=== PATIENT | female | born 1975 | race Caucasian/White ===

== ENCOUNTER 2016-10-21 22:42 | Inpatient (IN) | payer SELFPAY ==
[~2016-10-21] VITALS: Ht 165.1 cm; Wt 82.6 kg
[2016-10-21 22:49] VITALS: BP 105/63; PULSE 85; RESP 24; TEMP 98.2; O2SAT 92
[2016-10-21] MEDS ORDERED: methylPREDNISolone SOD SUCC 125 MG/2 ML VIAL IVP ONE (23:00)
[2016-10-21] MEDS ORDERED: SODIUM CHLORIDE 0.9% FLUSH 10 ML FLUSH IVF PRN (23:00)
[2016-10-21] MEDS ORDERED: SODIUM CHLORID 0.9% 500 ML INJ 500 ML IV ONE (23:00)
[2016-10-21] MEDS: RESP: ALBUTEROL 2.5 MG/IPRATROPIUM 0.5 MG NEB (SCH) INH (23:07)
--- NOTE | 2016-10-21 23:14 | PD ---
HPI Chief Complaint: Chest Pain Time Seen by Provider: 22:55 Travel History International Travel<30 days: No Contact w/Intl Traveler<30days: No Traveled to known affect area: No History of Present Illness HPI Patient is a 41-year-old female presenting to the emergency evaluation of chest pain and shortness of breath. Patient states it started 2 days ago, she does admit to smoking crack cocaine prior to the pain starting. She does report that she smokes regularly but has been trying to cut back. She endorses a history of tobacco use as well as COPD, currently she is not on any medications for this. Patient states it hurts to take a deep breath. She denies any headache, nausea, vomiting, abdominal pain, IV drug use. Patient states the pain in her chest feels pressure like. PFSH Past Medical History Bipolar Disorder: Yes Heart Rhythm Problems: Yes (murmur) COPD: Yes Diminished Hearing: No Immunizations Current: Yes ?: Unknown LMP: UNK : 1 Para: 1 Past Surgical History Neurologic Surgery: Yes (cerebral aneurysm) Social History Alcohol Use: Yes (12 pack per day) Tobacco Use: Yes (1 ppd) Substance Use: Yes (cocaine ) Allergies-Medications (Allergen,Severity, Reaction): Coded Allergies: No Known Allergies (Verified , 10/21/16) Reported Meds & Prescriptions Reported Meds & Active Scripts Active No Active Prescriptions or Reported Medications Review of Systems Except as stated in HPI: all other systems reviewed are Neg General / Constitutional: No: Fever, Chills HENT: No: Headaches Cardiovascular: Positive: Chest Pain or Discomfort Respiratory: Positive: Cough, Shortness of Breath Gastrointestinal: No: Nausea, Vomiting, Abdominal Pain Musculoskeletal: No: Myalgias Physical Exam Narrative GENERAL: Overweight, well-developed, disheveled but alert female. Resting comfortably in no acute distress. SKIN: Focused skin assessment warm/dry. HEAD: Atraumatic. Normocephalic. EYES: Pupils equal and round. No scleral icterus. No injection or drainage. ENT: No nasal bleeding or discharge. Mucous membranes pink and moist. NECK: Trachea midline. No JVD. CARDIOVASCULAR: Regular rate and rhythm. No murmur appreciated. RESPIRATORY: No accessory muscle use. Clear to auscultation. Breath sounds equal bilaterally. GASTROINTESTINAL: Abdomen soft, non-tender, nondistended. Hepatic and splenic margins not palpable. MUSCULOSKELETAL: No obvious deformities. No clubbing. No cyanosis. No edema. Positive pedal pulses, brisk less than 3 second capillary refill. NEUROLOGICAL: Awake and alert. No obvious cranial nerve deficits. Motor grossly within normal limits. Normal speech. PSYCHIATRIC: Appropriate mood and affect; insight and judgment normal. Data Data Last Documented VS Vital Signs Date Time Temp Pulse Resp B/P Pulse Ox O2 Delivery O2 Flow Rate FiO2 10/22/16 00:44 91 22 122/66 93 Nasal Cannula 2 10/21/16 22:49 98.2 Orders Electrocardiogram (10/21/16 22:54) Ckmb (Isoenzyme) Profile (10/21/16 22:54) Complete Blood Count With Diff (10/21/16 22:54) Comprehensive Metabolic Panel (10/21/16 22:54) Magnesium (Mg) (10/21/16 22:54) Prothrombin Time / Inr (Pt) (10/21/16 22:54) Act Partial Throm Time (Ptt) (10/21/16 22:54) Troponin I (10/21/16 22:54) Chest, Single Ap (10/21/16 22:54) Ecg Monitoring (10/21/16 22:54) Bilateral Bp Monitoring (10/21/16 22:54) Iv Access Insert/Monitor (10/21/16 22:54) Oximetry (10/21/16 22:54) Oxygen Administration (10/21/16 22:54) Sodium Chloride 0.9% Flush (Ns Flush) (10/21/16 23:00) Sodium Chlorid 0.9% 500 Ml Inj (Ns 500 M (10/21/16 23:00) Ct Pulmonary Angiogram (10/21/16 22:54) Methylprednisolone So Succ Inj (Solumedr (10/21/16 23:00) Albuterol-Ipratropium Neb (Duoneb Neb) (10/21/16 23:00) Potassium Chloride (Kcl) (10/22/16 00:00) Iohexol 350 Inj (Omnipaque 350 Inj) (10/22/16 00:34) Lactic Acid (10/22/16 00:45) Blood Culture (10/22/16 00:47) Urinalysis - C+S If Indicated (10/22/16 00:48) Admit Order (Ed Use Only) (10/22/16 01:21) Labs Laboratory Tests Test 10/21/16 10/22/16 23:02 00:55 White Blood Count 12.0 TH/MM3 Red Blood Count 4.34 MIL/MM3 Hemoglobin 14.4 GM/DL Hematocrit 42.6 % Mean Corpuscular Volume 98.0 FL Mean Corpuscular Hemoglobin 33.2 PG Mean Corpuscular Hemoglobin 33.9 % Concent Red Cell Distribution Width 13.5 % Platelet Count 224 TH/MM3 Mean Platelet Volume 7.7 FL Neutrophils (%) (Auto) 61.0 % Lymphocytes (%) (Auto) 29.3 % Monocytes (%) (Auto) 8.7 % Eosinophils (%) (Auto) 0.7 % Basophils (%) (Auto) 0.3 % Neutrophils # (Auto) 7.3 TH/MM3 Lymphocytes # (Auto) 3.5 TH/MM3 Monocytes # (Auto) 1.0 TH/MM3 Eosinophils # (Auto) 0.1 TH/MM3 Basophils # (Auto) 0.0 TH/MM3 CBC Comment DIFF FINAL Differential Comment Prothrombin Time 9.7 SEC Prothromb Time International 0.9 RATIO Ratio Activated Partial 26.6 SEC Thromboplast Time Sodium Level 143 MEQ/L Potassium Level 3.4 MEQ/L Chloride Level 110 MEQ/L Carbon Dioxide Level 23.5 MEQ/L Anion Gap 10 MEQ/L Blood Urea Nitrogen 5 MG/DL Creatinine 0.54 MG/DL Estimat Glomerular Filtration 124 ML/MIN Rate Random Glucose 97 MG/DL Calcium Level 7.9 MG/DL Magnesium Level 2.2 MG/DL Total Bilirubin 0.1 MG/DL Aspartate Amino Transf 13 U/L (AST/SGOT) Alanine Aminotransferase 30 U/L (ALT/SGPT) Alkaline Phosphatase 74 U/L Total Creatine Kinase 67 U/L Troponin I LESS THAN 0.02 NG/ML Total Protein 7.4 GM/DL Albumin 3.2 GM/DL Lactic Acid Level 1.9 mmol/L MDM Medical Decision Making Medical Screen Exam Complete: Yes Emergency Medical Condition: Yes Interpretation(s) Last Impressions Chest X-Ray 10/21/162253 Signed Impressions: Service Date/Time: Friday, October 21, 2016 23:05 - CONCLUSION: No acute disease. Constantino Chacon MD CT Angiography 5/28/17 2254 Signed Impressions: Service Date/Time: Saturday, October 22, 2016 00:31 - CONCLUSION: Small finding in the left pulmonary artery suggestive of residua of prior PE. Nothing to suggest acute PE. Mild patchy basilar infiltrates. Constantino Chacon MD Laboratory Tests Test 10/21/16 23:02 White Blood Count 12.0 TH/MM3 Red Blood Count 4.34 MIL/MM3 Hemoglobin 14.4 GM/DL Hematocrit 42.6 % Mean Corpuscular Volume 98.0 FL Mean Corpuscular Hemoglobin 33.2 PG Mean Corpuscular Hemoglobin 33.9 % Concent Red Cell Distribution Width 13.5 % Platelet Count 224 TH/MM3 Mean Platelet Volume 7.7 FL Neutrophils (%) (Auto) 61.0 % Lymphocytes (%) (Auto) 29.3 % Monocytes (%) (Auto) 8.7 % Eosinophils (%) (Auto) 0.7 % Basophils (%) (Auto) 0.3 % Neutrophils # (Auto) 7.3 TH/MM3 Lymphocytes # (Auto) 3.5 TH/MM3 Monocytes # (Auto) 1.0 TH/MM3 Eosinophils # (Auto) 0.1 TH/MM3 Basophils # (Auto) 0.0 TH/MM3 CBC Comment DIFF FINAL Differential Comment Prothrombin Time 9.7 SEC Prothromb Time International 0.9 RATIO Ratio Activated Partial 26.6 SEC Thromboplast Time Sodium Level 143 MEQ/L Potassium Level 3.4 MEQ/L Chloride Level 110 MEQ/L Carbon Dioxide Level 23.5 MEQ/L Anion Gap 10 MEQ/L Blood Urea Nitrogen 5 MG/DL Creatinine 0.54 MG/DL Estimat Glomerular Filtration 124 ML/MIN Rate Random Glucose 97 MG/DL Calcium Level 7.9 MG/DL Magnesium Level 2.2 MG/DL Total Bilirubin 0.1 MG/DL Aspartate Amino Transf 13 U/L (AST/SGOT) Alanine Aminotransferase 30 U/L (ALT/SGPT) Alkaline Phosphatase 74 U/L Total Creatine Kinase 67 U/L Troponin I LESS THAN 0.02 NG/ML Total Protein 7.4 GM/DL Albumin 3.2 GM/DL Vital Signs Date Time Temp Pulse Resp B/P Pulse Ox O2 Delivery O2 Flow Rate FiO2 10/21/16 22:49 25 97 10/21/16 22:49 98.2 85 24 105/63 92 Nasal Cannula 2 Differential Diagnosis Pulmonary embolism versus acute coronary syndrome versus electrolyte abnormality versus pneumonia versus COPD exacerbation versus other Narrative Course Patient is a 41-year-old female presenting to emergency evaluation of shortness of breath and chest pain. Patient endorses crack cocaine use as well as tobacco use and a history of COPD/emphysema with no current medical therapy. Labs and imaging were ordered pending, IV access initiated. Patient placed on telemetry monitoring and continuous pulse oximetry. Patient was mildly hypoxic on arrival with O2 sat in the upper 80s to low 90s. Patient placed on O2 2 L and currently at 94%. Chest x-ray shows no acute disease CT pulmonary angiogram shows small finding in the left pulmonary arteries suggestive of residual of prior PE, nothing to suggest acute PE. Mild patchy basilar infiltrates. CBC with a white count of 12.0 Chemistry with potassium 3.4, oral replacement given. Troponin less than 0.02 Coags are unremarkable Lactic acid 1.9 UA pending Blood cultures obtained and pending. Patient reports improvement in her breathing after administration of DuoNeb and IV Solu-Medrol. Due to hypoxia and chest pain. Patient will be admitted to optimize respiratory status. Discussed with Dr. Aguiar who accepted admission. Orders placed for inpatient admission. Sepsis Criteria SIRS Criteria (2 or more): Heart rate over 90, RR > 20 or PaCO2 < 32, WBC > 09877, < 4000 or > 10% bands Diagnosis Primary Impression: Hypoxia Additional Impressions: COPD exacerbation Chest pain Qualified Code: R07.9 - Chest pain, unspecified type Hypokalemia Drug abuse, cocaine type Admitting Information Admitting Physician Requests: Admit Scripts No Active Prescriptions or Reported Meds Condition: Stable Serenity Correa October 21, 2016 23:14
[2016-10-21 23:21] LABS: AUTOMATED NEUTROPHIL # 7.3 TH/MM3 (1.8-7.7); BASOPHIL % 0.3 % (0.0-2.0); EOSINOPHIL # 0.1 TH/MM3 (0-0.4); EOSINOPHIL % 0.7 % (0.0-4.0); HEMATOCRIT 42.6 % (35.0-46.0); HEMO FLAGS DIFF FINAL; LYMPH % 29.3 % (9.0-44.0); LYMPHOCYTE # 3.5 TH/MM3 (1.0-4.8); MEAN CORPUSCULAR HEMOGLOBIN 33.2 PG (27.0-34.0); MEAN CORPUSCULAR HGB CONC 33.9 % (32.0-36.0); MONO % 8.7 % (0.0-8.0); PLATELET COUNT 224 TH/MM3 (150-450); RED BLOOD COUNT 4.34 MIL/MM3 (4.00-5.30); RED CELL DISTRIBUTION WIDTH 13.5 % (11.6-17.2)
--- NOTE | 2016-10-21 23:22 | RADRPT ---
EXAM DATE/TIME: 10/21/2016 23:05 [facility] COMPARISON: No previous studies available for comparison. INDICATIONS : Short of breath. MEDICAL HISTORY : None. SURGICAL HISTORY : None. ENCOUNTER: Initial ACUITY: 1 day PAIN SCORE: 7/10 LOCATION: Bilateral chest FINDINGS: A single view of the chest demonstrates the lungs to be symmetrically aerated without evidence of mas s, infiltrate or effusion. The cardiomediastinal contours are unremarkable. Osseous structures are intact. CONCLUSION: No acute disease. Constantino Chacon MD on October 21, 2016 at 23:19 Board Certified Radiologist. This report was verified electronically.
[2016-10-21 23:51] LABS: APTT (PATIENT) 26.6 SEC (24.3-30.1); INTERNATIONAL NORMALIZED RATIO 0.9 RATIO; PROTHROMBIN TIME - PATIENT 9.7 SEC (9.8-11.6)
[2016-10-21 23:58] LABS: ANION GAP 10 MEQ/L (5-15); AST (GOT) 13 U/L (15-37); BICARBONATE 23.5 MEQ/L (21.0-32.0); BLOOD UREA NITROGEN 5 MG/DL (7-18); CHLORIDE 110 MEQ/L (98-107); GLOMERULAR FILTRATION RATE 124 ML/MIN (>89); MAGNESIUM 2.2 MG/DL (1.5-2.5); POTASSIUM 3.4 MEQ/L (3.5-5.1); SODIUM (NA) 143 MEQ/L (136-145)
[2016-10-22] VITALS (10 sets, daily range): BP systolic 120–142; BP diastolic 66–80; PULSE 65–92; RESP 17–22; TEMP 96.8–98.3; O2SAT 93–96
[2016-10-22] MEDS ORDERED: POTASSIUM CHLORIDE 20 MEQ CONTROLLED RELEASE TAB PO ONE
[2016-10-22 00:02] LABS: ALKALINE PHOSPHATASE 74 U/L (45-117); ALT (GPT) 30 U/L (10-53); TOTAL BILIRUBIN ADULT 0.1 MG/DL (0.2-1.0)
[2016-10-22 00:04] LABS: CREATINE KINASE 67 U/L (26-192)
[2016-10-22] MEDS ORDERED: IOHEXOL 350 MG/ML 10 ML VIAL (for RAD DIAG) IV ONE (00:34)
--- NOTE | 2016-10-22 00:54 | RADRPT ---
EXAM DATE/TIME: 10/22/2016 00:31 [facility] COMPARISON: No previous studies available for comparison. INDICATIONS : Chest pain with shortness of breath x2 days. IV CONTRAST: 74 cc Omnipaque 350 (iohexol) IV RADIATION DOSE: 11.3 CTDIvol (mGy) MEDICAL HISTORY : Chronic obstructive pulmonary disease. Substance abuse. SURGICAL HISTORY : None. ENCOUNTER: Initial ACUITY: 2 days PAIN SCALE: 5/10 LOCATION: Bilateral chest TECHNIQUE: Volumetric scanning of the chest was performed using a pulmonary embolism protocol MIP images were re constructed. Using automated exposure control and adjustment of the mA and/or kV according to patien t size, radiation dose was kept as low as reasonably achievable to obtain optimal diagnostic quality images. FINDINGS: The study is mildly degraded by motion. PULMONARY ARTERIES: There is a tiny irregular focus of low density along the lateral wall of the left main pulmonary lucas ry at the bifurcation region which has the appearance of a small marginalized focus of nonacute PE. T here are no other focal filling defects identified suggest acute pulmonary embolism. LUNGS: Patchy mild basilar parenchymal infiltrates, mainly in the middle lobe and lingula PLEURAE: There is no pleural thickening or pleural effusion. MEDIASTINUM: There is good visualization of the great vessels of the middle mediastinum. No evidence of mediastin al or hilar adenopathy/mass. MUSCULOSKELETAL: Within normal limits for patient age. MISCELLANEOUS: 16-17 mm peripherally calcified thrombosed aneurysm in the splenic hilum CONCLUSION: Small finding in the left pulmonary artery suggestive of residua of prior PE. Nothing to suggest acut e PE. Mild patchy basilar infiltrates. Constantino Chacon MD on October 22, 2016 at 0:44 Board Certified Radiologist. This report was verified electronically.
[2016-10-22] MEDS ORDERED: BISACODYL 10 MG SUPP RECTAL PRN (01:45)
[2016-10-22] MEDS ORDERED: SENNOSIDES 8.6 MG TAB PO PRN (01:45)
[2016-10-22] MEDS ORDERED: LORazepam 2 MG/ML VIAL IV PUSH PRN ×5 (01:45→02:15)
[2016-10-22] MEDS ORDERED: LACTULOSE SYRUP 20 GM/30 ML CUP PO PRN (01:45)
[2016-10-22] MEDS ORDERED: ONDANSETRON HCL 4 MG/2 ML VIAL IVP PRN (01:45)
[2016-10-22] MEDS ORDERED: RESP: ALBUTEROL 2.5 MG/IPRATROPIUM 0.5 MG NEB (PRN) NEB (01:45)
[2016-10-22] MEDS ORDERED: ACETAMINOPHEN/HYDROcodone 325 MG/5 MG TAB PO PRN (01:45)
[2016-10-22] MEDS ORDERED: MAGNESIUM HYDROXIDE SUSP 30 ML CUP PO PRN (01:45)
[2016-10-22] MEDS ORDERED: MORPHINE SULFATE 4 MG/ML INJ IV PRN (01:45)
[2016-10-22] MEDS ORDERED: ACETAMINOPHEN 325 MG TAB PO PRN (01:45)
--- NOTE | 2016-10-22 02:12 | HHI.HP ---
[facility] No Primary Care Physician Admission Diagnosis chest pain, hypoxia, COPD exacerbation Diagnoses: (1) COPD (chronic obstructive pulmonary disease) Diagnosis: Principal (2) Chest pain Diagnosis: Principal (3) Hypoxia Diagnosis: Principal (4) Hypokalemia Diagnosis: Principal (5) Leukocytosis Diagnosis: Principal (6) Cocaine abuse Diagnosis: Principal (7) Alcohol abuse Diagnosis: Principal (8) Tobacco abuse Diagnosis: Principal Travel History International Travel<30 Days: No Contact w/Intl Traveler <30 Da: No Traveled to Known Affected Are: No History of Present Illness This is a 41-year-old female with a PMH of Alcohol Abuse, Tobacco Abuse, Crack Cocaine Abuse, Bipolar Disorder and COPD who presented to the ER with complaints of SOB and chest pain starting earlier this evening. Patient does admit to smoking crack on a regular basis, states she used crack prior to onset of symptoms. Denies fever, chills or sick contacts. On arrival, O2 sat noted to be 86% on RA. BP 105/63, HR 85, Afebrile. Currently O2 sat 97% on 2L NC. WBC 12. K+ 3.4. Ca 7.9, Lactic Acid normal. Trop negative. EKG w/ no acute changes. INR 0.9. CXR with no acute findings. CTA Pulm with small residual PE left pulmonary artery, no acute PE noted, mild patchy basilar infiltrates. S /p Solu-Medrol and DuoNeb in ER w/ some improvement. Review of Systems Except as stated in HPI: all other systems reviewed are Neg ROS: 14 point review of systems otherwise negative. Past Family Social History Past Medical History PMH: Alcohol Abuse, Tobacco Abuse, Crack Cocaine Abuse, Bipolar Disorder and COPD Past Surgical History PAST SURGICAL HISTORY: Cerebral Aneurysm Allergies: Coded Allergies: No Known Allergies (Verified , 10/21/16) Family History PAST FAMILY HISTORY: Reviewed. No h/o DM or CAD Social History PAST SOCIAL HISTORY: Drinks 12 beers per day. Smokes 1ppd. Smokes Crack Cocaine daily, denies IVDU. Physical Exam Vital Signs Vital Signs Date Time Temp Pulse Resp B/P Pulse Ox O2 Delivery O2 Flow Rate FiO2 10/22/16 00:44 91 22 122/66 93 Nasal Cannula 2 10/21/16 22:49 25 97 10/21/16 22:49 98.2 85 24 105/63 92 Nasal Cannula 2 Physical Exam PE: GENERAL: Middle-aged female in no acute distress, appears older than stated age. HEENT: PERRLA, EOMI. No scleral icterus or conjunctival pallor. No lid lag or facial droop. CARDIOVASCULAR: Regular rate and rhythm. No obvious murmurs to auscultation. No chest tenderness to palpation. RESPIRATORY: No obvious rhonchi. Occasional wheezing. Clear to auscultation. Breath sounds equal bilaterally. GASTROINTESTINAL: Abdomen soft, non-tender, nondistended. BS normal. MUSCULOSKELETAL: Extremities without clubbing, cyanosis, or edema. No obvious deformities. NEUROLOGICAL: Awake, alert and oriented x4. No focal neurologic deficits. Moving both upper and lower extremities spontaneously. Laboratory Laboratory Tests Test 10/21/16 10/22/16 23:02 00:55 White Blood Count 12.0 Red Blood Count 4.34 Hemoglobin 14.4 Hematocrit 42.6 Mean Corpuscular Volume 98.0 Mean Corpuscular Hemoglobin 33.2 Mean Corpuscular Hemoglobin 33.9 Concent Red Cell Distribution Width 13.5 Platelet Count 224 Mean Platelet Volume 7.7 Neutrophils (%) (Auto) 61.0 Lymphocytes (%) (Auto) 29.3 Monocytes (%) (Auto) 8.7 Eosinophils (%) (Auto) 0.7 Basophils (%) (Auto) 0.3 Neutrophils # (Auto) 7.3 Lymphocytes # (Auto) 3.5 Monocytes # (Auto) 1.0 Eosinophils # (Auto) 0.1 Basophils # (Auto) 0.0 CBC Comment DIFF FINAL Differential Comment Prothrombin Time 9.7 Prothromb Time International 0.9 Ratio Activated Partial 26.6 Thromboplast Time Sodium Level 143 Potassium Level 3.4 Chloride Level 110 Carbon Dioxide Level 23.5 Anion Gap 10 Blood Urea Nitrogen 5 Creatinine 0.54 Estimat Glomerular Filtration 124 Rate Random Glucose 97 Calcium Level 7.9 Magnesium Level 2.2 Total Bilirubin 0.1 Aspartate Amino Transf 13 (AST/SGOT) Alanine Aminotransferase 30 (ALT/SGPT) Alkaline Phosphatase 74 Total Creatine Kinase 67 Troponin I LESS THAN 0.02 Total Protein 7.4 Albumin 3.2 Lactic Acid Level 1.9 Date/Time Procedure Status Source Growth 10/22/16 00:55 Aerobic Blood Culture Received Blood Peripheral Pending 10/22/16 00:55 Anaerobic Blood Culture Received Blood Peripheral Pending Result Diagram: 10/21/16 2302 10/21/16 2302 Assessment and Plan Problem List: (1) COPD (chronic obstructive pulmonary disease) ICD Code: J44.9 Status: Acute (2) Chest pain ICD Code: R07.9 Status: Acute (3) Hypoxia ICD Code: R09.02 Status: Acute (4) Leukocytosis ICD Code: D72.829 Status: Acute (5) Hypokalemia ICD Code: E87.6 Status: Acute (6) Cocaine abuse ICD Code: F14.10 Status: Acute (7) Alcohol abuse ICD Code: F10.10 Status: Acute (8) Tobacco abuse ICD Code: Z72.0 Status: Acute Assessment and Plan A/P: 1. COPD: Chronic Respiratory Failure w/ Acute Exacerbation and associated Hypoxia. +wheezing on exam. S/p Solu-Medrol and DuoNeb w/ some improvement. Continue Solu-Medrol, DuoNeb, Mucinex and Symbicort. 2. Hypoxia: O2 sat 86% on RA upon arrival, currently 97% on 2L NC, monitor O2 sat closely. Continue w/ treatment as above. 3. Leukocytosis: WBC 12, afebrile. Reports non-productive cough. CXR w/ no acute findings, CTA Pulm w/ small residual PE left pulmonary artery, mild patchy basilar infiltrates, images reviewed by me. Will start on treatment w/ IV Levaquin. Repeat labs in am. 4. Hypokalemia: Mild. K+ 3.4, s/p replacement in ER, will recheck and replace as needed. 5. Chest Pain: Likely multifactorial-secondary to acute COPD exacerbation and crack cocaine. Initial trop 0.04, EKG w/ no acute changes. ASA, Statin. Hold B-lamonte in light of cocaine. Morphine prn. 6. Cocaine Abuse: Smokes crack cocaine daily, denies IVDU. Ativan prn for withdrawal/agitation. 7. Alcohol Abuse: Drinks 12 beers/day. CIWA, Seizure Precautions, MVT/ Thiamine/Folate replacement. 8. Tobacco Abuse: Pt counselled. Ativan prn. No NicoDerm to avoid vasoconstriction. 9. DVT Prophylaxis: SCD/Teds. 10. Social work for d/c planning as needed. 11. Case discussed w/ ER physician at length. Physician Certification 2 Midnight Certification Type: Admission for Inpatient Services Order for Inpatient Services The services are ordered in accordance with Medicare regulations or non- Medicare payer requirements, as applicable. In the case of services not specified as inpatient-only, they are appropriately provided as inpatient services in accordance with the 2-midnight benchmark. Estimated LOS (days): 2 days is the estimated time the patient will need to remain in the hospital, assuming treatment plan goals are met and no additional complications. Post-Hospital Plan: Not yet determined Problem Qualifiers (1) Chest pain: Qualified Code: R07.9 - Chest pain, unspecified type Neli Aguiar MD October 22, 2016 02:12
[2016-10-22] MEDS ORDERED: FLUMAZENIL 0.5 MG/5 ML VIAL IV PUSH PRN (02:15)
[2016-10-22] MEDS ORDERED: LORazepam 1 MG TAB PO PRN (02:15)
[2016-10-22] MEDS ORDERED: HALOPERIDOL LACTATE 5 MG/ML AMP IM PRN (02:15)
[2016-10-22] MEDS ORDERED: LORazepam 2 MG TAB PO PRN (02:15)
[2016-10-22] MEDS: LEVOFLOXACIN 750 MG PREMIX INJ 150 ML IV SCH (02:26)
[2016-10-22] MEDS: methylPREDNISolone SOD SUCC 40 MG/1 ML VIAL IV PUSH SCH ×4 (04:51→23:15)
[2016-10-22 06:53] LABS: BACTERIA, URINE RARE /hpf; BLOOD, URINE NEG (NEG); GLUCOSE,URINE TRACE mg/dL (NEG); KETONE, URINE NEG (NEG); MUCUS URINE FEW /lpf (OCC); NITRITE,URINE NEG (NEG); SQUAMOUS EPITHELIAL CELL URINE 4 /hpf (0-5); URINE COLOR YELLOW (YELLW/STRAW)
[2016-10-22 07:03] LABS: COMMENT (UR) CULT NOT INDICATED; CULTURE IF INDICATED CULT NOT INDICATED
[2016-10-22] MEDS: RESP: ALBUTEROL 2.5 MG/IPRATROPIUM 0.5 MG NEB (SCH) NEB ×4 (07:44→19:50)
--- NOTE | 2016-10-22 08:19 | EKG ---
Date Performed: 10/21/2016 Time Performed: 22:53:17 PTAGE: 41 years EKG: Sinus rhythm MARKED RIGHT AXIS DEVIATION RIGHT BUNDLE BRANCH BLOCK ABNORMAL ECG NO PREVIOUS TRACING DOCTOR: Erik Zamora Interpretating Date/Time 10/22/2016 08:18:33
[2016-10-22] MEDS: THIAMINE HCL 100 MG TAB PO SCH (09:16)
[2016-10-22] MEDS: ASPIRIN EC 81 MG TABEC PO SCH (09:16)
[2016-10-22] MEDS: MULTIVITAMINS/MINERALS THERAPEUTIC TAB PO SCH (09:16)
[2016-10-22] MEDS: PRAVASTATIN SOD 40 MG TAB PO SCH (09:16)
[2016-10-22] MEDS: FOLIC ACID 1 MG TAB PO SCH (09:16)
[2016-10-22] MEDS: guaiFENesin E.R. 600 MG TAB PO SCH ×2 (09:16→20:52)
[2016-10-22] MEDS: DOCUSATE SODIUM 50 MG/SENNA 8.6 MG TAB PO SCH ×2 (09:16→20:52)
[2016-10-22] MEDS: SODIUM CHLORIDE 0.9% FLUSH 10 ML FLUSH IV FLUSH SCH ×2 (09:17→20:51)
[2016-10-22] MEDS: BUDESONIDE-FORMOTEROL 160/4.5 MCG INHALER INH SCH ×2 (09:22→20:51)
[2016-10-22] MEDS: SODIUM CHLORIDE 0.9% FLUSH 10 ML FLUSH IV FLUSH PRN ×2 (11:55→18:08)
[2016-10-23] VITALS: BP 157/72; PULSE 69; RESP 20; TEMP 96; O2SAT 95
[2016-10-23] MEDS: LEVOFLOXACIN 750 MG PREMIX INJ 150 ML IV SCH (01:54)
[2016-10-23 04:00] VITALS: BP 115/86; PULSE 83; RESP 20; TEMP 96.9; O2SAT 95
[2016-10-23 05:44] LABS: ANION GAP 10 MEQ/L (5-15); AST (GOT) 8 U/L (15-37); BICARBONATE 25.5 MEQ/L (21.0-32.0); BLOOD UREA NITROGEN 8 MG/DL (7-18); CHLORIDE 104 MEQ/L (98-107); GLOMERULAR FILTRATION RATE 124 ML/MIN (>89); POTASSIUM 3.9 MEQ/L (3.5-5.1); SODIUM (NA) 139 MEQ/L (136-145)
[2016-10-23 05:45] LABS: AUTOMATED NEUTROPHIL # 18.1 TH/MM3 (1.8-7.7); BASOPHIL % 0.2 % (0.0-2.0); HEMATOCRIT 41.1 % (35.0-46.0); HEMO FLAGS DIFF FINAL; MEAN CELL VOLUME 98.9 FL (80.0-100.0); MEAN CORPUSCULAR HEMOGLOBIN 33.4 PG (27.0-34.0); MEAN CORPUSCULAR HGB CONC 33.8 % (32.0-36.0); MONO % 4.2 % (0.0-8.0); NEUT % 90.6 % (16.0-70.0); PLATELET COUNT 220 TH/MM3 (150-450); RED BLOOD COUNT 4.16 MIL/MM3 (4.00-5.30); RED CELL DISTRIBUTION WIDTH 13.5 % (11.6-17.2); WHITE BLOOD COUNT 19.9 TH/MM3 (4.0-11.0)
[2016-10-23] MEDS: methylPREDNISolone SOD SUCC 40 MG/1 ML VIAL IV PUSH SCH (05:47)
[2016-10-23 05:54] LABS: ALKALINE PHOSPHATASE 68 U/L (45-117); ALT (GPT) 24 U/L (10-53); TOTAL BILIRUBIN ADULT 0.2 MG/DL (0.2-1.0)
[2016-10-23 08:00] VITALS: BP 130/80; PULSE 72; RESP 18; TEMP 95.7; O2SAT 98
[2016-10-23] MEDS: RESP: ALBUTEROL 2.5 MG/IPRATROPIUM 0.5 MG NEB (SCH) NEB (08:32)
[2016-10-23 08:34] VITALS: O2SAT 95
[2016-10-23] MEDS: FOLIC ACID 1 MG TAB PO SCH (08:46)
[2016-10-23] MEDS: DOCUSATE SODIUM 50 MG/SENNA 8.6 MG TAB PO SCH (08:47)
[2016-10-23] MEDS: MULTIVITAMINS/MINERALS THERAPEUTIC TAB PO SCH (08:47)
[2016-10-23] MEDS: ASPIRIN EC 81 MG TABEC PO SCH (08:47)
[2016-10-23] MEDS: THIAMINE HCL 100 MG TAB PO SCH (08:47)
[2016-10-23] MEDS: PRAVASTATIN SOD 40 MG TAB PO SCH (08:47)
[2016-10-23] MEDS: guaiFENesin E.R. 600 MG TAB PO SCH (08:47)
[2016-10-23] MEDS: SODIUM CHLORIDE 0.9% FLUSH 10 ML FLUSH IV FLUSH SCH (09:00)
[2016-10-23] MEDS: BUDESONIDE-FORMOTEROL 160/4.5 MCG INHALER INH SCH (09:00)
--- NOTE | 2016-10-23 09:23 | HHI.PR ---
Subjective Remarks Patient reports she is feeling great and requesting to go home. She reports that her breathing status is at baseline. No chest pain. We discussed discharge planning at length and the need for her to stop drinking alcohol and use illicit drugs. Objective Vitals Vital Signs Date Time Temp Pulse Resp B/P Pulse Ox O2 Delivery O2 Flow Rate FiO2 10/23/16 08:34 95 10/23/16 08:00 95.7 72 18 130/80 98 10/23/16 04:00 96.9 83 20 115/86 95 10/23/16 00:00 96.0 69 20 157/72 95 10/22/16 20:30 65 10/22/16 20:00 97.1 69 20 138/71 95 10/22/16 19:50 96 21 10/22/16 16:00 98.3 72 17 142/66 96 10/22/16 16:00 96.8 78 18 130/68 95 10/22/16 12:00 97.9 87 18 120/80 94 I/O 10/22/16 10/22/16 10/22/16 10/23/16 10/23/16 10/23/16 07:00 15:00 23:00 07:00 15:00 23:00 Intake Total 240 ml 240 ml 480 ml 390 ml Balance 240 ml 240 ml 480 ml 390 ml Intake Oral 240 ml 240 ml 480 ml 240 ml IV Total 0 ml 150 ml # Voids 0 2 2 3 # Bowel Movements 0 1 0 1 Result Diagram: 10/23/16 0432 10/23/16 0432 Objective Remarks GENERAL: This is a well-nourished, well-developed patient, in no apparent distress. CARDIOVASCULAR: Normal rate and regular rhythm without murmurs, gallops, or rubs. RESPIRATORY: Good respiratory efforts. Breath sounds equal and clear to auscultation bilaterally. GASTROINTESTINAL: Abdomen soft, non-tender, non-distended. Normal active bowel sounds MUSCULOSKELETAL: Extremities without cyanosis, or edema. NEURO: Alert & Oriented x4 to person, place, time, situation. Moves all ext x4 PSYCH: Appropriate mood and affect. A/P Problem List: (1) COPD (chronic obstructive pulmonary disease) ICD Code: J44.9 Status: Acute (2) Chest pain ICD Code: R07.9 Status: Acute (3) Hypoxia ICD Code: R09.02 Status: Acute (4) Leukocytosis ICD Code: D72.829 Status: Acute (5) Hypokalemia ICD Code: E87.6 Status: Acute (6) Cocaine abuse ICD Code: F14.10 Status: Acute (7) Alcohol abuse ICD Code: F10.10 Status: Acute (8) Tobacco abuse ICD Code: Z72.0 Status: Acute Assessment and Plan 41-year-old female admitted with acute COPD exacerbation likely secondary to pneumonia and persistent crack cocaine use. The patient was treated with IV Solu-Medrol, breathing treatments, and IV Levaquin. She was hypoxemic on arrival. The patient's symptoms quickly improved. She is discharge home on Levaquin and prednisone to complete the course of treatment. Other conditions treated include Hypokalemia: Mild. K+ 3.4, s/p replacement in ER Chest Pain: Likely multifactorial-secondary to acute COPD exacerbation and crack cocaine. Cardiac enzymes and EKG unremarkable. Cocaine Abuse: Smokes crack cocaine daily, denies IVDU. Ativan prn for withdrawal/agitation. The patient was extensively counseled to stop using illicit drugs. Alcohol Abuse: Drinks 12 beers/day. CIWA, Seizure Precautions, MVT/Thiamine/ Folate replacement. Tobacco Abuse: Pt counselled. Ativan prn. No NicoDerm to avoid vasoconstriction. Discharge Planning Discharge home in good condition Activity: Regular as tolerated Diet: Regular as tolerated Follow-up with PCP Meds: Per med rec Problem Qualifiers (1) Chest pain: Qualified Code: R07.9 - Chest pain, unspecified type Harman Sanchez MD October 23, 2016 09:23
[2016-10-23] MEDS ORDERED: LEVO750T3 PO (09:25)
[2016-10-23] MEDS ORDERED: PRED20 PO (09:25)
--- NOTE | 2016-10-23 09:26 | HHI.DCPOC ---
Discharge Care Plan Diagnosis: (1) Hypoxia (2) COPD exacerbation (3) Alcohol use disorder (4) Drug abuse, cocaine type (5) Tobacco abuse Goals to Promote Your Health * To prevent worsening of your condition and complications * To maintain your health at the optimal level Directions to Meet Your Goals Take your medications as prescribed Follow your dietary instruction Follow activity as directed Keep your appointments as scheduled Take your immunizations and boosters as scheduled If your symptoms worsen call your PCP, if no PCP go to Urgent Care Center or Emergency Room Smoking is Dangerous to Your Health. Avoid second hand smoke Call the 24-hour hour crisis hotline for domestic abuse at Harman Sanchez MD October 23, 2016 09:26
== END 2016-10-23 12:08 | disposition home or self-care (01) | DRG 189 ==
LOC: NEPD 22:42 → NEDA 10-22 01:22 → N07B 10-22 02:37
PROVIDERS: ADMIT Family Medicine; ATTEND Family Medicine
PROC: 3E0F7GC Introduction of Other Therapeutic Substance into Respiratory Tract, Via Natural or Artificial Opening (ICD-10-PCS; principal; 2016-10-22)
DX: J96.21 Acute and chronic respiratory failure with hypoxia (principal); J18.9 Pneumonia, unspecified organism; J44.0 Chronic obstructive pulmonary disease with (acute) lower respiratory infection; J44.1 Chronic obstructive pulmonary disease with (acute) exacerbation; F14.10 Cocaine abuse, uncomplicated; F31.9 Bipolar disorder, unspecified; E87.6 Hypokalemia; F17.200 Nicotine dependence, unspecified, uncomplicated; Z86.711 Personal history of pulmonary embolism; F10.10 Alcohol abuse, uncomplicated; T40.5X1A Poisoning by cocaine, accidental (unintentional), initial encounter; Y92.9 Unspecified place or not applicable; R07.89 Other chest pain
CPT/HCPCS: 71010; 71275; 80053; 81001; 82550; 82948; 83605; 83735; 84484; 85025; 85610; 85730; 87040; 93005; 94640; 94664; 96361; 96374; J1956; J2920; J2930; J7040; Q9967

== ENCOUNTER 2017-05-16 14:14 | Emergency (ER) | payer SELFPAY ==
[~2017-05-16 14:14] MED LIST: LEVO750T3 PO; PRED20 PO
[2017-05-16 14:21] VITALS: BP 141/80; PULSE 91; RESP 20; TEMP 98; O2SAT 94
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
--- NOTE | 2017-05-16 16:18 | RADRPT ---
EXAM DATE/TIME: 05/16/2017 15:51 [facility] COMPARISON: No previous studies available for comparison. INDICATIONS : Right leg swelling. MEDICAL HISTORY : Chronic obstructive pulmonary disease. . Cerebral aneurysm. Heart murmur. Bipolar disord er. Substance abuse. SURGICAL HISTORY : Ankle surgery. ENCOUNTER: Initial ACUITY: 2 weeks PAIN SCORE: 3/10 LOCATION: Right leg. TECHNIQUE: Venous ultrasound of the leg was performed from the inguinal ligament to the proximal calf. Real-sylvester e, color Doppler and spectral tracing, compression and augmentation techniques were used. FINDINGS: There is normal compressibility of the deep venous system from the inguinal region to the proximal ca lf. No echogenic clot is seen in the lumen of the common femoral, femoral, popliteal, and posterior tibial veins. There is a normal response of the venous system to proximal and distal augmentation an d respiration. There is elliptical fluid collection within the subcutaneous tissues of the medial calf. This measure s 10.0 x 5.1 x 0.8 cm and is simple in appearance. CONCLUSION: 1. Small simple subcutaneous fluid collection involving the medial calf. 2. No DVT. Rob Parra Jr., MD on May 16, 2017 at 16:14 Board Certified Radiologist. This report was verified electronically.
[2017-05-16] MEDS ORDERED: BACT800T5 PO (16:31)
[2017-05-16] MEDS ORDERED: CEPH-460 PO (16:31)
== END 2017-05-16 16:33 | disposition home or self-care (01) ==
LOC: NEPD 14:14
DX: Z48.02 Encounter for removal of sutures (principal); L03.115 Cellulitis of right lower limb; S82.831G Other fracture of upper and lower end of right fibula, subsequent encounter for closed fracture with delayed healing; F31.9 Bipolar disorder, unspecified; R01.1 Cardiac murmur, unspecified; J44.9 Chronic obstructive pulmonary disease, unspecified; F17.200 Nicotine dependence, unspecified, uncomplicated; X58.XXXD Exposure to other specified factors, subsequent encounter
CPT/HCPCS: 73590; 93971; 99285; E0113; L1830

== ENCOUNTER 2017-12-23 22:00 | Inpatient (IN) ==
[2017-12-24] MEDS ORDERED: Morphine Inj 4 MG/ML Vial IV.PUSH ONE ×2 (00:38→02:13)
[2017-12-24] MEDS ORDERED: Sodium Chlor 0.9% Inj 500 ML IV.SIG ONE (00:38)
[2017-12-24] MEDS ORDERED: Piperacil/Tazo 3.375 GM Premix 50 ML IV.SIG ONE (00:38)
[2017-12-24] MEDS ORDERED: Vancomycin Inj 1 GM/200 ML PIGGYBACK IV.SIG ONE (00:38)
[2017-12-24 01:19] LABS: Baso % (Auto) 0.2 % (0.0-2.0); Eos % (Auto) 0.2 % (0.0-4.0); Hematocrit 39.2 % (35.0-46.0); Hemoglobin 13.5 gm/dL (11.6-15.3); Lymph # (Auto) 1.3 th/mm3 (1.0-4.8); Lymph % (Auto) 8.1 % (9.0-44.0); Mean Corpuscular HGB Conc 34.5 % (32.0-36.0); Mean Corpuscular Hemoglobin 33.7 pg (27.0-34.0); Mean Corpuscular Volume 97.6 fL (80.0-100.0); Mean Platelet Volume 8.9 fL (7.0-11.0); Mono # (Auto) 1.3 th/mm3 (0.0-0.9); Mono % (Auto) 7.6 % (0.0-8.0); Neut % (Auto) 83.9 % (16.0-70.0); Platelet Count 167 th/mm3 (150-450); Red Blood Count 4.02 mil/mm3 (4.00-5.30); Red Cell Distribution Width 13.6 % (11.6-17.2); White Blood Count 16.7 th/mm3 (4.0-11.0)
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
[2017-12-24 01:29] LABS: Alkaline Phosphatase 89 U/L (45-117); Total Protein 7.2 g/dL (6.4-8.2)
[2017-12-24 01:32] LABS: Alanine Aminotransferase 27 U/L (10-53); Albumin 2.5 g/dL (3.4-5.0); Anion Gap 9 meq/L (5-15); Aspartate Aminotransferase 16 U/L (15-37); Blood Urea Nitrogen 8 mg/dL (7-18); Calcium 9.7 mg/dL (8.5-10.1); Carbon Dioxide 26.9 meq/L (21.0-32.0); Chloride 100 meq/L (98-107); Glomerular Filtration Rate Greater Than 89 mL/min (>89); Glucose,Random 68 mg/dL (74-106); Potassium 3.2 meq/L (3.5-5.1); Sodium 136 meq/L (136-145)
[2017-12-24 01:33] LABS: Creatine Kinase 28 U/L (26-192)
--- NOTE | 2017-12-24 01:55 | XR ---
EXAM DATE: 12/24/2017 1:43 AM EDT AGE/SEX: 42 years / Female INDICATIONS: Pain and swelling in right leg. CLINICAL DATA: This is the patient's initial encounter. Patient reports that signs and symptoms have been present for 1 day and indicates a pain score of 5/10. MEDICAL/SURGICAL HISTORY: None. None. COMPARISON: [facility], FOOT COMPLETE RIGHT 3V, 12/24/2017. . FINDINGS: Bony structures are intact and in normal alignment. Osseous density is normal. There is diffuse soft tissue prominence. No radiopaque foreign bodies seen. CONCLUSION: Soft tissue prominence with no acute fracture or malalignment. Electronically signed by: Alexis Jensen MD 12/24/2017 1:54 AM EDT
--- NOTE | 2017-12-24 01:55 | XR ---
EXAM DATE: 12/24/2017 1:42 AM EDT AGE/SEX: 42 years / Female INDICATIONS: Pain in right leg, swelling. CLINICAL DATA: This is the patient's initial encounter. Patient reports that signs and symptoms have been present for 1 day and indicates a pain score of 4/10. MEDICAL/SURGICAL HISTORY: None. None. COMPARISON: [facility] [place], TIBIA/FIBULA RIGHT (AP/LAT), 05/16/2017. . FINDINGS: AP, lateral and oblique views of the foot were obtained and demonstrate a mildly comminuted fracture deformity involving the proximal second phalanx with several oblique fracture lines. There is no abno rmal angulation or significant distraction. The fracture lines do not appear to extend into the proxi mal interphalangeal joint. There is soft tissue swelling over the dorsum of the foot. CONCLUSION: Mildly comminuted fracture deformity involving the second proximal phalanx. Electronically signed by: Alexis Jensen MD 12/24/2017 1:53 AM EDT
[2017-12-24 02:17] LABS: Lymphocytes 8 % (9-44); Monocytes 7 % (0-8); Platelet Estimate Normal (Normal)
[2017-12-24 02:18] LABS: RBC Morphology Normal (Normal)
[2017-12-24] MEDS ORDERED: Vancomycin Consult Pharmacy 1 EACH OTHER SCH (04:28)
[2017-12-24] MEDS ORDERED: Temazepam 15 MG Capsule PO PRN (04:28)
[2017-12-24] MEDS ORDERED: Bisacodyl 10 MG Supp RECTAL PRN (04:28)
[2017-12-24] MEDS ORDERED: Vancomycin Inj 1,000 MG in Sodium Chlor 0.9% Inj 250 ML IV.SIG ONE (05:00)
[2017-12-24] MEDS ORDERED: Morphine Inj 4 MG/ML Vial IV.PUSH PRN (06:45)
[2017-12-24] MEDS: Heparin - SQ 10,000 UNITS/ML Vial SQ SCH ×2 (07:00→17:42)
[2017-12-24] MEDS: Piperacil/Tazo 3.375 GM Premix 50 ML IV.SIG SCH ×3 (07:01→19:03)
[2017-12-24] MEDS ORDERED: Docusate Sodium 100 MG Capsule PO PRN (10:01)
[2017-12-24] MEDS ORDERED: Aluminum/Magnesium/Simethacone Susp 30 ML UDC PO PRN (10:01)
[2017-12-24] MEDS ORDERED: Morphine Sulfate Inj 2 MG/ML Vial IV.PUSH PRN (10:01)
[2017-12-24] MEDS ORDERED: Naloxone Inj 0.4 MG/ML Vial IV.PUSH PRN (10:01)
[2017-12-24] MEDS ORDERED: Haloperidol Inj 5 MG/ML Ampul IV.PUSH PRN (10:15)
[2017-12-24] MEDS ORDERED: LORazepam 1 MG Tablet PO PRN (10:15)
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
[2017-12-24] MEDS ORDERED: UPDATE PATIENT HEIGHT IN MEDITECH - CALL PHARMACY OTHER SCH (10:30)
[2017-12-24] MEDS: Vancomycin Inj 1,000 MG in Sodium Chlor 0.9% Inj 250 ML IV.SIG SCH ×2 (10:32→17:41)
[2017-12-24] MEDS: Senna/Docusate Sodium 8.6/50 MG Tablet PO SCH ×2 (10:33→21:57)
[2017-12-24] MEDS: oxyCODONE/Acetaminophen 10/325 Tablet PO PRN ×2 (11:36→17:42)
[2017-12-24] MEDS: Acetaminophen 325 MG Tablet PO PRN ×2 (12:00→21:57)
[2017-12-24] MEDS: Folic Acid 1 MG Tablet PO SCH (12:01)
[2017-12-24] MEDS: Famotidine 20 MG Tablet PO SCH ×2 (12:01→21:57)
[2017-12-24 14:10] LABS: Hepatitis A IgM Antibody Nonreactive (Nonreactive)
[2017-12-24 14:11] LABS: Hepatitits B Surface Antigen Nonreactive (Nonreactive)
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
[2017-12-24] MEDS ORDERED: Enoxaparin Inj 40 MG/0.4 ML Syringe SQ SCH (17:00)
[2017-12-25] MEDS ORDERED: Pharmacy Ordered Lab Info OTHER ONE (01:45)
[2017-12-25] MEDS: Vancomycin Inj 1,000 MG in Sodium Chlor 0.9% Inj 250 ML IV.SIG SCH ×3 (03:54→18:31)
[2017-12-25] MEDS: Piperacil/Tazo 3.375 GM Premix 50 ML IV.SIG SCH (06:02)
[2017-12-25 08:43] LABS: Baso % (Auto) 0.2 % (0.0-2.0); Eos % (Auto) 0.3 % (0.0-4.0); Hematocrit 33.5 % (35.0-46.0); Hemoglobin 11.4 gm/dL (11.6-15.3); Lymph # (Auto) 1.3 th/mm3 (1.0-4.8); Lymph % (Auto) 9.1 % (9.0-44.0); Mean Corpuscular HGB Conc 34.2 % (32.0-36.0); Mean Corpuscular Hemoglobin 33.2 pg (27.0-34.0); Mean Platelet Volume 7.9 fL (7.0-11.0); Mono # (Auto) 1.4 th/mm3 (0.0-0.9); Mono % (Auto) 10.1 % (0.0-8.0); Neut # (Auto) 11.5 th/mm3 (1.8-7.7); Neut % (Auto) 80.3 % (16.0-70.0); Platelet Count 170 th/mm3 (150-450); Red Blood Count 3.45 mil/mm3 (4.00-5.30); Red Cell Distribution Width 13.9 % (11.6-17.2); White Blood Count 14.3 th/mm3 (4.0-11.0)
[2017-12-25 09:11] LABS: Alanine Aminotransferase 97 U/L (10-53); Anion Gap 7 meq/L (5-15); Aspartate Aminotransferase 99 U/L (15-37); Blood Urea Nitrogen 15 mg/dL (7-18); Calcium 8.2 mg/dL (8.5-10.1); Carbon Dioxide 25.6 meq/L (21.0-32.0); Chloride 103 meq/L (98-107); Cholesterol 87 mg/dL (120-200); Glomerular Filtration Rate 48 mL/min (>89); Glucose,Random 89 mg/dL (74-106); Magnesium 1.8 mg/dL (1.5-2.5); Phosphorus 2.7 mg/dL (2.5-4.9); Potassium 3.5 meq/L (3.5-5.1); Sodium 136 meq/L (136-145); Triglycerides 129 mg/dL (42-150)
[2017-12-25] MEDS: Folic Acid 1 MG Tablet PO SCH (09:11)
[2017-12-25] MEDS: Famotidine 20 MG Tablet PO SCH ×2 (09:11→23:24)
[2017-12-25] MEDS: Senna/Docusate Sodium 8.6/50 MG Tablet PO SCH ×2 (09:12→21:25)
[2017-12-25 09:20] LABS: Alkaline Phosphatase 99 U/L (45-117); Chol/HDL Ratio 9.56 Ratio; Free T4 (Free Thyroxine) 1.36 ng/dL (0.76-1.46); HDL Cholesterol 9.1 mg/dL (40.0-60.0); LDL Cholesterol,Calculated 52 mg/dL (0-99); Total Protein 6.6 g/dL (6.4-8.2)
--- NOTE | 2017-12-25 11:39 | P.PNIM ---
Subjective Interval history: Follow-up right foot cellulitis Patient still complaining of moderate to severe right foot pain, positive for fever overnight. Denies any chest pain or shortness of breath. Physical Exam Vital signs: Vital Signs 12/24/17 12:00 12/24/17 16:00 12/24/17 20:00 Temperature 101.6 F H 98.7 F 101.5 F H Pulse Rate 112 H 89 98 H Respiratory Rate 19 19 16 Blood Pressure 133/78 124/73 108/64 Pulse Oximetry 92 L 96 93 L 12/25/17 00:00 12/25/17 04:00 12/25/17 08:00 Temperature 99.2 F 98.7 F 100 F H Pulse Rate 91 H 95 H 95 H Respiratory Rate 17 17 18 Blood Pressure 112/77 117/73 123/71 Pulse Oximetry 93 L 93 L Intake & Output 12/24/17 12/25/17 12/25/17 18:59 06:59 18:59 Intake Total 1800 / 1800 850 / 850 Balance 1800 / 1800 850 / 850 Weight 75.9 kg 168 kg Intake: IV 600 / 600 350 / 350 Zosyn 3.375 GM Premix 50 ML @ 100 / 100 100 / 100 100 mls/hr IV.SIG Q6H [facility] Rx#: [id number] Vancomycin Inj 1,000 MG In NS 500 / 500 250 / 250 Inj 250 ML @ 250 mls/hr IV.SIG Q8H [facility] Rx#:[id number] Oral 1200 / 1200 500 / 500 Other: # Voids 4 3 Narrative: Not in distress, well-nourished PERRL, pink conjunctiva without injection, anicteric Normal rate and regular rhythm, no murmurs gallops or rubs appreciated. Clear to auscultation and symmetric bilaterally, normal respiratory effort. Normal bowel sounds, soft, non-tender, nondistended, no guarding. Right foot, dorsalis pedis nonpalpable, gross sensation intact, very tender, with erythema and warmth. No open lesions noted. AAO x3, no cranial nerve deficits, moves all 4 extremities, no focal neurologic deficits Results - Labs CBC & Chem 7: 12/25/17 08:18 12/25/17 08:18 Laboratory Results - last 24 hr 12/24/17 12/25/17 12/25/17 11:51 01:48 08:18 WBC 14.3 H RBC 3.45 L Hgb 11.4 L D Hct 33.5 L MCV 97.0 MCH 33.2 MCHC 34.2 RDW 13.9 Plt Count 170 MPV 7.9 Neut % (Auto) 80.3 H Lymph % (Auto) 9.1 [place] % (Auto) 10.1 H Eos % (Auto) 0.3 Baso % (Auto) 0.2 Neut # (Auto) 11.5 H Lymph # (Auto) 1.3 [place] # (Auto) 1.4 H Eos # (Auto) 0.0 Baso # (Auto) 0.0 WBC Differential . Differential Comment Auto diff final Sodium Potassium Chloride Carbon Dioxide Anion Gap BUN Creatinine Estimated GFR Random Glucose Calcium Phosphorus Magnesium Total Bilirubin AST ALT Alkaline Phosphatase Total Protein Albumin Triglycerides Cholesterol LDL Cholesterol, Calc HDL Cholesterol Cholesterol/HDL Ratio TSH Free T4 Vancomycin Trough 11.4 H Hepatitis A IgM Ab Nonreactive Hep Bs Antigen Nonreactive Hep B Core IgM Ab Nonreactive Hep C IgG Ab Nonreactive 12/25/17 08:18 WBC RBC Hgb Hct MCV MCH MCHC RDW Plt Count MPV Neut % (Auto) Lymph % (Auto) [place] % (Auto) Eos % (Auto) Baso % (Auto) Neut # (Auto) Lymph # (Auto) [place] # (Auto) Eos # (Auto) Baso # (Auto) WBC Differential Differential Comment Sodium 136 Potassium 3.5 Chloride 103 Carbon Dioxide 25.6 Anion Gap 7 BUN 15 Creatinine 1.22 H Estimated GFR 48 L Random Glucose 89 Calcium 8.2 L D Phosphorus 2.7 Magnesium 1.8 Total Bilirubin 1.0 AST 99 H ALT 97 H Alkaline Phosphatase 99 Total Protein 6.6 D Albumin 2.0 L Triglycerides 129 Cholesterol 87 L LDL Cholesterol, Calc 52 HDL Cholesterol 9.1 L Cholesterol/HDL Ratio 9.56 TSH 1.460 Free T4 1.36 Vancomycin Trough Hepatitis A IgM Ab Hep Bs Antigen Hep B Core IgM Ab Hep C IgG Ab Microbiology 12/23/17 22:25 Blood - Peripheral Aerobic Blood Culture - Preliminary No growth in 1 day 12/23/17 22:25 Blood - Peripheral Anaerobic Blood Culture - Preliminary No growth in 1 day 12/23/17 22:20 Blood - Peripheral Aerobic Blood Culture - Preliminary No growth in 1 day 12/23/17 22:20 Blood - Peripheral Anaerobic Blood Culture - Preliminary No growth in 1 day Assessment and Plan - Plan This is a 42-year-old homeless female with history of alcohol abuse presented to the hospital with right foot cellulitis Right foot cellulitis-continue vancomycin and Zosyn, podiatry consulted, recommends MRI of the right foot. Check MRI. Leukocytosis better, still spiking fever. Monitor. Weight bearing as tolerated. Continue pain control. Acute renal failure-baseline creatinine is normal, now creeping up, start normal saline, check CMP tomorrow. AST ALT elevation-hepatitis panel negative, start IVF as above, check CMP tomorrow. Comminuted fracture of the second partial phalanx-management per podiatry Hypokalemia-replaced Tobacco abuse -recommend cessation continue on NicoDerm patch Alcohol abuse recommend cessation will continue on multivitamin thiamine and folic acid, CR protocol if needed. Homeless Lovenox for DVT prophylaxis
[2017-12-25 16:44] LABS: Hemoglobin A1c 4.8 % (4.3-6.0)
[2017-12-25] MEDS: Heparin - SQ 10,000 UNITS/ML Vial SQ SCH (18:25)
[2017-12-25] MEDS: oxyCODONE/Acetaminophen 10/325 Tablet PO PRN (18:35)
[2017-12-26] MEDS: oxyCODONE/Acetaminophen 10/325 Tablet PO PRN ×2 (00:20→09:38)
[2017-12-26] MEDS ORDERED: Pharmacy Ordered Lab Info OTHER ONE (01:45)
[2017-12-26] MEDS: Vancomycin Inj 1,000 MG in Sodium Chlor 0.9% Inj 250 ML IV.SIG SCH ×3 (02:10→19:38)
[2017-12-26] MEDS: Heparin - SQ 10,000 UNITS/ML Vial SQ SCH ×3 (06:41→19:38)
[2017-12-26 08:19] LABS: Albumin 1.9 g/dL (3.4-5.0); Anion Gap 7 meq/L (5-15); Aspartate Aminotransferase 114 U/L (15-37); Blood Urea Nitrogen 18 mg/dL (7-18); Calcium 8.3 mg/dL (8.5-10.1); Carbon Dioxide 27.5 meq/L (21.0-32.0); Chloride 105 meq/L (98-107); Glomerular Filtration Rate 47 mL/min (>89); Glucose,Random 100 mg/dL (74-106); Potassium 3.6 meq/L (3.5-5.1); Sodium 139 meq/L (136-145)
[2017-12-26 08:22] LABS: Alanine Aminotransferase 149 U/L (10-53); Alkaline Phosphatase 260 U/L (45-117); Total Protein 6.8 g/dL (6.4-8.2)
[2017-12-26] MEDS: Sod Chloride 0.9% Inj 1,000 ML IV.CONT SCH ×3 (09:28→19:37)
[2017-12-26] MEDS: Senna/Docusate Sodium 8.6/50 MG Tablet PO SCH ×2 (09:29→21:30)
[2017-12-26] MEDS: Famotidine 20 MG Tablet PO SCH ×2 (09:29→21:30)
[2017-12-26] MEDS: Folic Acid 1 MG Tablet PO SCH (09:30)
--- NOTE | 2017-12-26 09:31 | P.PNIM ---
Subjective Interval history: No fever overnight, patient says that right lower extremity pain about the same , swelling is about the same, not worse. No nausea or vomiting, no shortness of breath. Physical Exam Vital signs: Vital Signs 12/25/17 11:50 12/25/17 16:00 12/25/17 20:00 Temperature 97 F L 99 F 98.4 F Pulse Rate 98 H 99 H 92 H Respiratory Rate 18 18 18 Blood Pressure 119/77 118/71 119/67 Pulse Oximetry 97 92 L 96 12/26/17 00:00 12/26/17 04:00 12/26/17 08:00 Temperature 98.5 F 98.6 F 97.9 F Pulse Rate 83 81 80 Respiratory Rate 17 18 22 Blood Pressure 105/58 L 115/68 111/71 Pulse Oximetry 94 L 97 95 Intake & Output 12/25/17 12/26/17 12/26/17 18:59 06:59 18:59 Intake Total 2069 250 / 250 Output Total 200 / 200 Balance 2069 50 / 50 Weight 78.5 kg Intake: IV 250 / 250 250 / 250 Zosyn 3.375 GM Premix 50 ML @ 0 / 0 100 mls/hr IV.SIG Q6H [facility] Rx#: [id number] Vancomycin Inj 1,000 MG In NS 250 / 250 250 / 250 Inj 250 ML @ 250 mls/hr IV.SIG Q8H [facility] Rx#:[id number] Oral 1819 / 1819 Output: Urine 200 / 200 Other: # Voids 6 # Bowel Movements 0 Narrative: Not in distress, well-nourished PERRL, pink conjunctiva without injection, anicteric Normal rate and regular rhythm, no murmurs gallops or rubs appreciated. Clear to auscultation and symmetric bilaterally, normal respiratory effort. Normal bowel sounds, soft, non-tender, nondistended, no guarding. Right foot, dorsalis pedis nonpalpable, gross sensation intact, less tender, with erythema and warmth. No open lesions noted. Mild draining noted. AAO x3, no cranial nerve deficits, moves all 4 extremities, no focal neurologic deficits Results - Labs CBC & Chem 7: 12/25/17 08:18 12/26/17 06:43 Laboratory Results - last 24 hr 12/25/17 12/25/17 12/26/17 08:18 08:18 02:00 Sodium Potassium Chloride Carbon Dioxide Anion Gap BUN Creatinine Estimated GFR Random Glucose Hemoglobin A1c 4.8 Calcium Total Bilirubin 1.0 AST ALT Alkaline Phosphatase 99 Total Protein 6.6 D Albumin LDL Cholesterol, Calc 52 HDL Cholesterol 9.1 L Cholesterol/HDL Ratio 9.56 TSH 1.460 Free T4 1.36 Vancomycin Trough 17.3 H 12/26/17 06:43 Sodium 139 Potassium 3.6 Chloride 105 Carbon Dioxide 27.5 Anion Gap 7 BUN 18 Creatinine 1.25 H Estimated GFR 47 L Random Glucose 100 Hemoglobin A1c Calcium 8.3 L Total Bilirubin 1.0 AST 114 H ALT 149 H Alkaline Phosphatase 260 H Total Protein 6.8 Albumin 1.9 L LDL Cholesterol, Calc HDL Cholesterol Cholesterol/HDL Ratio TSH Free T4 Vancomycin Trough Microbiology 12/23/17 22:25 Blood - Peripheral Aerobic Blood Culture - Preliminary No growth in 1 day 12/23/17 22:25 Blood - Peripheral Anaerobic Blood Culture - Preliminary No growth in 1 day 12/23/17 22:20 Blood - Peripheral Aerobic Blood Culture - Preliminary No growth in 1 day 12/23/17 22:20 Blood - Peripheral Anaerobic Blood Culture - Preliminary No growth in 1 day Assessment and Plan - Plan This is a 42-year-old homeless female with history of alcohol abuse presented to the hospital with right foot cellulitis Right foot cellulitis-continue vancomycin and Zosyn, podiatry consulted, check MRI of the foot, also check ultrasound the right lower extremity Doppler to rule out DVT. Leukocytosis better, afebrile for the last 24 hours. Monitor. Weight bearing as tolerated per podiatry. Continue pain control. Acute renal failure-baseline creatinine is normal, now creeping up, start normal saline, creatinine still elevated, increase IVF. AST/ALT elevation-hepatitis panel negative, increase IVF, still increasing. Check liver US. Recheck LFTs tomorrow. Comminuted fracture of the second partial phalanx-management per podiatry Hypokalemia-replaced Tobacco abuse -recommend cessation continue on NicoDerm patch Alcohol abuse recommend cessation will continue on multivitamin thiamine and folic acid, CIWA protocol if needed. Homeless Lovenox for DVT prophylaxis
--- NOTE | 2017-12-26 14:06 | XR ---
EXAM DATE: 12/26/2017 2:02 PM EDT AGE/SEX: 42 years / Female INDICATIONS: Clear for MRI. CLINICAL DATA: This is the patient's initial encounter. Patient reports that signs and symptoms have been present for 1 day and indicates a pain score of 0/10. MEDICAL/SURGICAL HISTORY: None. . Brain Aneurysm COMPARISON: No prior exams available for comparison. FINDINGS: A two view examination of the skull demonstrates no evidence of fracture. . No radiopaque foreign bod ies are demonstrated. There appears to be evidence of a previous right-sided craniotomy defect. CONCLUSION: No metallic or radiopaque foreign bodies are seen overlying the calvarium. Electronically signed by: Burak Sapp MD 12/26/2017 2:04 PM EDT
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
[2017-12-26] MEDS ORDERED: Gadobutrol PF 10 MMOL/10 ML Vial (for RAD) IV.SIG ONE (15:34)
--- NOTE | 2017-12-26 16:15 | MR ---
EXAM DATE: 12/26/2017 3:52 PM EDT AGE/SEX: 42 years / Female INDICATIONS: Osteomyelitis. Redness around entire foot. CLINICAL DATA: This is the patient's initial encounter. Patient reports that signs and symptoms have been present for 4 - 6 days and indicates a pain score of 8/10. MEDICAL/SURGICAL HISTORY: None. None. COMPARISON: No prior exams available for comparison. TECHNIQUE: Multiplanar, multisequence MRI examination was performed without contrast and after th e intravenous administration of 7 ml Gadavist (gadobutrol) single exam dose. FINDINGS: There is severe cellulitis involving the entire foot more prominent over the dorsal surface. No focal areas of marrow placement are identified. There is a questionable tiny foreign body involving the p lantar surface of the foot between the first and second webspace at the level of the metatarsophalang eal joint. Following the administration of contrast there is diffuse enhancement of the soft tissues with a superficial abscess over the dorsal aspect of the foot measuring 5 cm x 1 cm. CONCLUSION: Cellulitis and subcutaneous abscess over the dorsal aspect of the foot as described above without melita dence of osteomyelitis Possible foreign body plantar aspect of the foot Electronically signed by: Benito Tan MD 12/26/2017 4:14 PM EDT
[2017-12-26] MEDS: Piperacil/Tazo 3.375 GM Premix 50 ML IV.SIG SCH ×3 (18:31→19:36)
[2017-12-27] MEDS: Piperacil/Tazo 3.375 GM Premix 50 ML IV.SIG SCH ×4 (00:35→20:00)
[2017-12-27] MEDS: Vancomycin Inj 1,000 MG in Sodium Chlor 0.9% Inj 250 ML IV.SIG SCH ×3 (02:02→17:37)
[2017-12-27] MEDS: oxyCODONE/Acetaminophen 10/325 Tablet PO PRN ×3 (04:44→18:51)
[2017-12-27] MEDS: Sod Chloride 0.9% Inj 1,000 ML IV.CONT SCH ×3 (05:43→17:36)
[2017-12-27] MEDS: Heparin - SQ 10,000 UNITS/ML Vial SQ SCH ×2 (06:24→17:42)
[2017-12-27 08:22] LABS: Albumin 1.8 g/dL (3.4-5.0); Calcium 7.9 mg/dL (8.5-10.1); Carbon Dioxide 24.8 meq/L (21.0-32.0)
[2017-12-27 08:25] LABS: Total Protein 6.6 g/dL (6.4-8.2)
--- NOTE | 2017-12-27 08:53 | P.PNIM ---
Subjective Interval history: No fever overnight, had MRI done, showed abscess, this information was relayed to the patient. Right foot pain about the same. No nausea or vomiting. No new complaints. Physical Exam Vital signs: Vital Signs 12/26/17 12:00 12/26/17 16:00 12/26/17 20:00 Temperature 97.7 F 97.8 F 98.2 F Pulse Rate 83 81 89 Respiratory Rate 20 19 18 Blood Pressure 108/66 110/70 116/73 Pulse Oximetry 95 96 98 12/27/17 00:00 12/27/17 04:00 Temperature 99.2 F 98.9 F Pulse Rate 83 94 H Respiratory Rate 18 19 Blood Pressure 114/61 143/68 H Pulse Oximetry 96 96 Intake & Output 12/26/17 12/27/17 12/27/17 18:59 06:59 18:59 Intake Total 1720 / 1720 2200 / 2200 Balance 1720 / 1720 2200 / 2200 Weight 166.8 kg Intake: IV 1000 / 1000 1600 / 1600 NS Inj 1,000 ML @ 125 mls/hr IV 1000 / 1000 1000 / 1000 .CONT .Q8H [facility] Rx#:[id number] Zosyn 3.375 GM Premix 50 ML @ 100 / 100 100 mls/hr IV.SIG Q6H [facility] Rx#: [id number] Vancomycin Inj 1,000 MG In NS 500 / 500 Inj 250 ML @ 250 mls/hr IV.SIG Q8H [facility] Rx#:[id number] Oral 720 / 720 600 / 600 Other: # Voids 4 6 # Bowel Movements 0 Narrative: Not in distress, well-nourished PERRL, pink conjunctiva without injection, anicteric Normal rate and regular rhythm, no murmurs gallops or rubs appreciated. Clear to auscultation and symmetric bilaterally, normal respiratory effort. Normal bowel sounds, soft, non-tender, nondistended, no guarding. Right foot, dorsalis pedis nonpalpable, gross sensation intact, less tender, with erythema and warmth. No open lesions noted. AAO x3, no cranial nerve deficits, moves all 4 extremities, no focal neurologic deficits Results - Labs CBC & Chem 7: 12/25/17 08:18 12/27/17 06:59 Laboratory Results - last 24 hr 12/27/17 06:59 Sodium 141 Potassium 4.0 Chloride 108 H Carbon Dioxide 24.8 Anion Gap 8 BUN 15 Creatinine 1.15 H Estimated GFR 52 L Random Glucose 90 Calcium 7.9 L Total Bilirubin 0.9 Direct Bilirubin 0.6 H Indirect Bilirubin 0.3 AST 80 H ALT 130 H Alkaline Phosphatase 153 H Total Protein 6.6 Albumin 1.8 L Microbiology 12/23/17 22:25 Blood - Peripheral Aerobic Blood Culture - Preliminary No growth in 2 days 12/23/17 22:25 Blood - Peripheral Anaerobic Blood Culture - Preliminary No growth in 2 days 12/23/17 22:20 Blood - Peripheral Aerobic Blood Culture - Preliminary No growth in 2 days 12/23/17 22:20 Blood - Peripheral Anaerobic Blood Culture - Preliminary No growth in 2 days - Imaging Impressions Foot MRI 12/26/17 00:00 CONCLUSION: Cellulitis and subcutaneous abscess over the dorsal aspect of the foot as described above without evidence of osteomyelitis Possible foreign body plantar aspect of the foot Skull X-Ray 12/26/17 00:00 CONCLUSION: No metallic or radiopaque foreign bodies are seen overlying the calvarium. Venous Doppler Study 12/26/17 00:00 CONCLUSION: 1. No evidence of DVT. Assessment and Plan - Plan This is a 42-year-old homeless female with history of alcohol abuse presented to the hospital with right foot cellulitis Right foot cellulitis-continue vancomycin and Zosyn, podiatry consulted, MRI showed cellulitis and abscess (5x1cm). Doppler ultrasound right lower extremity negative for DVT. Leukocytosis better, afebrile for the last 24 hours. Monitor. Weight bearing as tolerated per podiatry. Continue pain control. Discussed with podiatry regarding abscess. Acute renal failure-baseline creatinine is normal, improving, continue normal saline. AST/ALT elevation-hepatitis panel negative, improving. Comminuted fracture of the second partial phalanx-management per podiatry Hypokalemia-replace Tobacco abuse -recommend cessation continue on NicoDerm patch Alcohol abuse - recommend cessation will continue on multivitamin thiamine and folic acid, CIWA protocol stopped, no signs of withdrawal Homeless, d/c once cleared by Podiatry Heparin for DVT prophylaxis
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
[2017-12-27] MEDS: Folic Acid 1 MG Tablet PO SCH (09:51)
[2017-12-27] MEDS: Senna/Docusate Sodium 8.6/50 MG Tablet PO SCH ×2 (09:51→21:38)
[2017-12-27] MEDS: Famotidine 20 MG Tablet PO SCH ×2 (09:52→21:36)
--- NOTE | 2017-12-27 19:04 | P.PNPOD ---
Subjective Interval history: Right foot cellulitis. Pt states her pain is still severe but thinks the abx have been helping. She denies any n/v/f/h/c/sob. Physical Exam Vital signs: Vital Signs 12/26/17 20:00 12/27/17 00:00 12/27/17 04:00 Temperature 98.2 F 99.2 F 98.9 F Pulse Rate 89 83 94 H Respiratory Rate 18 18 19 Blood Pressure 116/73 114/61 143/68 H Pulse Oximetry 98 96 96 12/27/17 08:00 12/27/17 12:00 12/27/17 16:00 Temperature 97.0 F L 98.3 F 97.7 F Pulse Rate 74 85 81 Respiratory Rate 18 18 Blood Pressure 115/65 105/70 133/79 Pulse Oximetry 95 94 L 97 12/27/17 17:54 Temperature Pulse Rate 90 Respiratory Rate 18 Blood Pressure 141/89 H Pulse Oximetry 96 Intake & Output 12/26/17 12/27/17 12/27/17 18:59 06:59 18:59 Intake Total 1720 / 1720 2250 / 2250 2970 / 2970 Balance 1720 / 1720 2250 / 2250 2970 / 2970 Weight 166.8 kg Intake: IV 1000 / 1000 1650 / 1650 2250 / 2250 NS Inj 1,000 ML @ 125 mls/hr IV 1000 / 1000 1000 / 1000 2000 / 2000 .CONT .Q8H [facility] Rx#:[id number] Zosyn 3.375 GM Premix 50 ML @ 150 / 150 100 mls/hr IV.SIG Q6H [facility] Rx#: [id number] Vancomycin Inj 1,000 MG In NS 500 / 500 250 / 250 Inj 250 ML @ 250 mls/hr IV.SIG Q8H [facility] Rx#:[id number] Oral 720 / 720 600 / 600 720 / 720 Other: # Voids 4 6 1 # Bowel Movements 0 Narrative: Erythema to right foot and distal ankle. Several areas that appear to be superficial bullaes. Pain with palpation. +1 pitting edema. Medications and Allergies Active Medications: Active Medications Acetaminophen (Tylenol) 650 mg PO Q4H PRN PRN Reason: Temp > 100.4 Last Admin: 12/24/17 21:57 Dose: 650 mg Al Hydrox/Mg Hydrox/Simethicone (Mag-Al Plus Susp Liq) 30 ml PO Q6H PRN PRN Reason: DYSPEPSIA Al Hydroxide/Mg Hydroxide (Milk Of Magnesia Liq) 30 ml PO Q12H PRN PRN Reason: Mild Constipation Bisacodyl (Dulcolax Supp) 10 mg RECTAL DAILY PRN PRN Reason: SEVERE CONSITIPATION Docusate Sodium (Colace) 100 mg PO BID PRN PRN Reason: CONSTIPATION Famotidine (Pepcid) 10 mg PO BID [facility] Last Admin: 12/27/17 09:52 Dose: 10 mg Folic Acid (Folic Acid) 1 mg PO DAILY [facility] Last Admin: 12/27/17 09:51 Dose: 1 mg Heparin Sodium (Porcine) (Heparin Inj) 5,000 units SQ Q12H [facility] Last Admin: 12/27/17 17:42 Dose: 5,000 units Pharmacy Profile Note (Vancomycin Consult Pharmacy) 0 mls @ 0 mls/hr [facility] Piperacillin/Tazobactam/Dextrose (Zosyn 3.375 Gm Premix) 50 mls @ 100 mls/hr IV.SIG Q6H [facility] Last Admin: 12/27/17 12:07 Dose: 100 mls/hr Vancomycin HCl 1,000 mg/ (Sodium Chloride) 250 mls @ 250 mls/hr IV.SIG Q8H [facility] Last Admin: 12/27/17 17:37 Dose: 250 mls/hr Sodium Chloride (Ns Inj) 1,000 mls @ 125 mls/hr IV.CONT .Q8H [facility] Last Admin: 12/27/17 17:36 Dose: 100 mls/hr Lactulose (Lactulose Liq) 30 ml PO DAILY PRN PRN Reason: SEVERE CONSITIPATION Miscellaneous (Pill Splitter) 1 each OTHER UNSCH [facility] Miscellaneous Information ([facility] Ordered Lab Info) 0 each OTHER ONCE [facility] Stop: 12/31/17 03:00 Morphine Sulfate (Morphine Inj) 2 mg IV.PUSH Q3H PRN PRN Reason: PAIN 3-5; IF UABLE TO TAKE PO Multivitamins (Theragran) 1 tab PO DAILY [facility] Last Admin: 12/27/17 09:53 Dose: 1 tab Naloxone HCl (Narcan Inj) 0.4 mg IV.PUSH UNSCH PRN PRN Reason: SEE LABEL COMMENTS Nicotine (Habitrol 14 Mg Patch.24 Hr) 1 patch T-DERMAL DAILY [facility] Last Admin: 12/27/17 09:52 Dose: Not Given Ondansetron HCl (Zofran Odt) 4 mg PO Q6H PRN PRN Reason: NAUSEA OR VOMITING Last Admin: 12/27/17 18:55 Dose: 4 mg Oxycodone/Acetaminophen (Percocet 10/325 Mg) 1 tab PO Q6H PRN PRN Reason: PAIN SCALE 6 TO 10 Last Admin: 12/27/17 18:51 Dose: 1 tab Oxycodone/Acetaminophen (Percocet 5/325 Mg) 1 tab PO Q6H PRN PRN Reason: PAIN SCALE 3 TO 5 Last Admin: 12/26/17 18:32 Dose: 1 tab Patch Removal (Remove Old Patch) 1 each T-DERMAL DAILY [facility] Last Admin: 12/27/17 09:53 Dose: Not Given Potassium Chloride (Klor-Con 10) 40 meq PO DAILY [facility] Last Admin: 12/27/17 09:52 Dose: 40 meq Senna/Docusate Sodium (Stacy-Colace) 1 tab PO BID [facility] Last Admin: 12/27/17 09:51 Dose: 1 tab Sennosides (Senokot) 17.2 mg PO Q12H PRN PRN Reason: Moderate Constipation Temazepam (Restoril) 15 mg PO HS PRN PRN Reason: INSOMNIA Thiamine HCl (Vitamin B1) 100 mg PO DAILY [facility] Last Admin: 12/27/17 09:52 Dose: 100 mg Allergies Allergy/AdvReac Type Severity Reaction Status Date / Time No Known Allergies Allergy Mild n/a Uncoded 12/24/17 05:20 Home Medications Medication Instructions Recorded Confirmed Type No Known Home Medications 12/23/17 12/23/17 History Results - Labs CBC & Chem 7: 12/25/17 08:18 12/27/17 06:59 Laboratory Results - last 24 hr 12/27/17 06:59 Sodium 141 Potassium 4.0 Chloride 108 H Carbon Dioxide 24.8 Anion Gap 8 BUN 15 Creatinine 1.15 H Estimated GFR 52 L Random Glucose 90 Calcium 7.9 L Total Bilirubin 0.9 Direct Bilirubin 0.6 H Indirect Bilirubin 0.3 AST 80 H ALT 130 H Alkaline Phosphatase 153 H Total Protein 6.6 Albumin 1.8 L Microbiology 12/23/17 22:25 Blood - Peripheral Aerobic Blood Culture - Preliminary No growth in 3 days 12/23/17 22:25 Blood - Peripheral Anaerobic Blood Culture - Preliminary No growth in 3 days 12/23/17 22:20 Blood - Peripheral Aerobic Blood Culture - Preliminary No growth in 3 days 12/23/17 22:20 Blood - Peripheral Anaerobic Blood Culture - Preliminary No growth in 3 days - Imaging Impressions Foot MRI 12/26/17 00:00 CONCLUSION: Cellulitis and subcutaneous abscess over the dorsal aspect of the foot as described above without evidence of osteomyelitis Possible foreign body plantar aspect of the foot Skull X-Ray 12/26/17 00:00 CONCLUSION: No metallic or radiopaque foreign bodies are seen overlying the calvarium. Venous Doppler Study 12/26/17 00:00 CONCLUSION: 1. No evidence of DVT. Liver Ultrasound 12/27/17 00:00 CONCLUSION: 1. Hepatomegaly with grossly normal hepatic echotexture. Differential considerations include early acute hepatitis and medical liver disease. 2. Minimal gallbladder wall thickening. This finding is nonspecific but may be seen with hypoalbuminemia and chronic liver disease. Assessment and Plan - Assessment (1) Abscess Code(s): L02.91 - Cutaneous abscess, unspecified Status: Acute - Plan -discussed MRI results with radiologist, he believes there are likely multiple micro abscesses along with generalized tissue edema and inflammation -will plan for an I&D within the next 1-2 days -con't iv abx -elevate leg while at rest
[2017-12-28] MEDS: Piperacil/Tazo 3.375 GM Premix 50 ML IV.SIG SCH ×4 (01:20→18:26)
[2017-12-28] MEDS: Sod Chloride 0.9% Inj 1,000 ML IV.CONT SCH ×3 (01:21→17:10)
[2017-12-28] MEDS: oxyCODONE/Acetaminophen 10/325 Tablet PO PRN ×4 (01:30→20:19)
[2017-12-28] MEDS: Vancomycin Inj 1,000 MG in Sodium Chlor 0.9% Inj 250 ML IV.SIG SCH ×3 (02:10→17:09)
[2017-12-28] MEDS ORDERED: Chlorhexidine Gluconate 2% 1 Pack (2 Cloths) TOPICAL SCH (05:30)
[2017-12-28] MEDS ORDERED: Metoprolol Tartrate 25 MG Tablet PO SCH (05:30)
[2017-12-28] MEDS ORDERED: Sodium Chlor 0.9% Inj 500 ML IV.SIG SCH (06:00)
[2017-12-28] MEDS: Heparin - SQ 10,000 UNITS/ML Vial SQ SCH ×2 (06:27→17:09)
[2017-12-28] MEDS: Famotidine 20 MG Tablet PO SCH ×2 (08:01→20:19)
[2017-12-28] MEDS: Folic Acid 1 MG Tablet PO SCH (08:02)
[2017-12-28] MEDS: Senna/Docusate Sodium 8.6/50 MG Tablet PO SCH ×2 (08:02→20:19)
--- NOTE | 2017-12-28 09:15 | P.PN ---
Physical Exam Vital signs: Vital Signs 12/27/17 12:00 12/27/17 16:00 12/27/17 17:54 Temperature 98.3 F 97.7 F Pulse Rate 85 81 90 Respiratory Rate 18 Blood Pressure 105/70 133/79 141/89 H Pulse Oximetry 94 L 97 96 12/27/17 20:00 12/28/17 00:00 12/28/17 04:00 Temperature 98.9 F 98.6 F 98.1 F Pulse Rate 86 86 72 Respiratory Rate 18 Blood Pressure 116/58 L 134/69 127/75 Pulse Oximetry 91 L 92 L 94 L Intake & Output 12/27/17 12/28/17 12/28/17 18:59 06:59 18:59 Intake Total 3220 / 3220 1150 / 1150 300 / 300 Balance 3220 / 3220 1150 / 1150 300 / 300 Weight 166.8 kg Intake: IV 2500 / 2500 1150 / 1150 300 / 300 NS Inj 1,000 ML @ 125 mls/hr IV 2000 / 2000 1000 / 1000 .CONT .Q8H [facility] Rx#:[id number] Zosyn 3.375 GM Premix 50 ML @ 150 / 150 50 / 50 100 mls/hr IV.SIG Q6H [facility] Rx#: [id number] Vancomycin Inj 1,000 MG In NS 500 / 500 250 / 250 Inj 250 ML @ 250 mls/hr IV.SIG Q8H [facility] Rx#:[id number] Oral 720 / 720 Other: # Voids 1 3 Narrative: Subjective Seen after surgery. Pain, at the surgical site. Swelling of right foot. No fever or chills. No nvdc. Physical Exam GENERAL: 42 yo F, in pain SKIN: Right foot, dorsalis pedis nonpalpable, gross sensation intact, less tender, with erythema and warmth. No open lesions noted. CARDIOVASCULAR: Regular rate and rhythm without murmurs, gallops, or rubs. RESPIRATORY: Breath sounds equal bilaterally. No accessory muscle use. GASTROINTESTINAL: Abdomen soft, non-tender, nondistended. MUSCULOSKELETAL: No cyanosis, or edema. BACK: Nontender without obvious deformity. No CVA tenderness. NEURO: AAO x3, no cranial nerve deficits, moves all 4 extremities, no focal neurologic deficits Assessment and Plan This is a 42-year-old homeless female with history of alcohol abuse presented to the hospital with right foot cellulitis Right foot cellulitis-continue vancomycin and Zosyn, podiatry consulted, MRI showed cellulitis and abscess (5x1cm). Doppler ultrasound right lower extremity negative for DVT. Leukocytosis better, afebrile for the last 24 hours. Monitor. Weight bearing as tolerated per podiatry. Continue pain control. Discussed with podiatry regarding abscess. S/p I&D on 12/28/17 Continue IV abx Elevate leg while at rest Acute renal failure-baseline creatinine is normal, improving, continue normal saline. AST/ALT elevation-hepatitis panel negative, improving. Comminuted fracture of the second partial phalanx-management per podiatry Hypokalemia-replace Tobacco abuse -recommend cessation continue on NicoDerm patch Alcohol abuse - recommend cessation will continue on multivitamin thiamine and folic acid, CIWA protocol stopped, no signs of withdrawal Homeless, d/c once cleared by Podiatry DVT prophylaxis heparin Discussed with the patient, nurse. Results - Labs CBC & Chem 7: 12/25/17 08:18 12/28/17 07:45 Microbiology 12/23/17 22:25 Blood - Peripheral Aerobic Blood Culture - Preliminary No growth in 3 days 12/23/17 22:25 Blood - Peripheral Anaerobic Blood Culture - Preliminary No growth in 3 days 12/23/17 22:20 Blood - Peripheral Aerobic Blood Culture - Preliminary No growth in 3 days 12/23/17 22:20 Blood - Peripheral Anaerobic Blood Culture - Preliminary No growth in 3 days - Imaging Impressions Foot MRI 12/26/17 00:00 CONCLUSION: Cellulitis and subcutaneous abscess over the dorsal aspect of the foot as described above without evidence of osteomyelitis Possible foreign body plantar aspect of the foot Venous Doppler Study 12/26/17 00:00 CONCLUSION: 1. No evidence of DVT. Liver Ultrasound 12/27/17 00:00 CONCLUSION: 1. Hepatomegaly with grossly normal hepatic echotexture. Differential considerations include early acute hepatitis and medical liver disease. 2. Minimal gallbladder wall thickening. This finding is nonspecific but may be seen with hypoalbuminemia and chronic liver disease. - Procedures I&D by podiatry of multiple abscesses on 12/28/17
[2017-12-28 09:59] LABS: Albumin 1.7 g/dL (3.4-5.0); Anion Gap 9 meq/L (5-15); Aspartate Aminotransferase 41 U/L (15-37); Blood Urea Nitrogen 13 mg/dL (7-18); Carbon Dioxide 25.4 meq/L (21.0-32.0); Chloride 107 meq/L (98-107); Glomerular Filtration Rate 56 mL/min (>89); Glucose,Random 76 mg/dL (74-106); Potassium 4.4 meq/L (3.5-5.1); Sodium 141 meq/L (136-145)
[2017-12-28 10:02] LABS: Alanine Aminotransferase 98 U/L (10-53); Alkaline Phosphatase 148 U/L (45-117); Total Protein 6.6 g/dL (6.4-8.2)
[2017-12-28] MEDS ORDERED: Neomycin/Polymyxin G.U. Irrigant 1 ML Ampul ONE (10:20)
[2017-12-28] MEDS ORDERED: fentaNYL Citrate Inj 250 MCG/5 ML Ampul ONE (10:30)
[2017-12-28] MEDS ORDERED: *Meperidine Inj 25 MG/ML Vial PERIprocedural Use ONLY ONE (11:30)
--- NOTE | 2017-12-28 11:41 | MP ---
cc: Jennifer Ferraro DPM DATE OF OPERATION: 12/28/2017 DATE OF SURGERY: 12/28/2017 SURGEON: Jennifer Ferraro DPM CORE MACHINE OPERATOR: None. PREOPERATIVE DIAGNOSES: 1. Right foot abscess. 2. Right ankle abscess. POSTOPERATIVE DIAGNOSES: 1. Right foot abscess. 2. Right ankle abscess. PROCEDURES PERFORMED: 1. Right foot I&D 2. Right ankle I&D PATHOLOGY SENT: Abscess cultures to microbiology. ANESTHESIA: General. HEMOSTASIS: Anatomical dissection. ESTIMATED BLOOD LOSS: Less than 20 mL. INJECTABLES COMPLICATIONS: None. MATERIALS USED: None. COMPLICATIONS: None. INDICATION FOR PROCEDURE: Ms. Mercedes is a 42-year-old female patient with a substantial right foot and ankle abscess, confirmed on MRI. After further discussion with the radiologist, it appears she has sort of a thin layer of infectious fluid throughout the foot and ankle and not one loculated abscess. The decision was made to deroof the superficial bullae and attempt to drain any drainable infectious material from the leg. The consent was signed. The procedure was explained. No guarantees were given. DESCRIPTION OF PROCEDURE: Under mild sedation, the patient was brought into the operating room and placed on the operating table in supine position. Following IV sedation, the leg was scrubbed, prepped and draped in usual aseptic manner. The patient had large superficial bullae circumferentially from the medial ankle anteriorly to the lateral ankle. These were deroofed and cleaned. On the MRI, the heavy concentration of fluid appeared to be in the medial ankle, so a pie crust technique was used, creating approximately 6 small stab incisions in a row along the medial ankle. There was some caseous-like material expelled at that time. The incisions were deepened using a hemostat in order to allow better flow. The area was manually squeezed and exsanguinated until all the drainage was clear lymphatic drainage or sanguinous drainage. A similar approach was used on the dorsal aspect of the foot and the lateral aspect of the ankle. However, these did not drain any purulent or caseous material. The foot was cleansed extremely well with sterile saline, dressed with a thin layer of bacitracin, Xeroform, abdominal pads, cast padding and a light DONALD bandage. The patient tolerated the procedure and the anesthesia well. She will recover in the PACU for a period of time before being discharged back to her room with written and oral postoperative instructions. COLETTE Alston/RAPHAEL , 11:27 AM , 11:32 AM FRANCISCA
[2017-12-28] MEDS ORDERED: Lidocaine PF 1% Inj 5 ML Syringe INFILTRATN ONE (13:21)
[2017-12-28] MEDS ORDERED: Ketorolac Inj 30 MG/ML (IVP) Vial IV.PUSH ONE (13:21)
--- NOTE | 2017-12-28 13:43 | ECG ---
Date Performed: 12/28/2017 Time Performed: 09:00:24 PTAGE: 42 years EKG: Sinus rhythm MODERATE INTRAVENTRICULAR CONDUCTION DELAY BORDERLINE ECG Since the PREVIOUS TRACING , no significant change noted PREVIOUS TRACIN10/21/2016 22.53 DOCTOR: Tisha Spicer Interpretating Date/Time 12/28/2017 13:42:48
[2017-12-29] MEDS: Piperacil/Tazo 3.375 GM Premix 50 ML IV.SIG SCH ×5 (00:37→23:44)
[2017-12-29] MEDS: Vancomycin Inj 1,000 MG in Sodium Chlor 0.9% Inj 250 ML IV.SIG SCH ×2 (02:09→10:43)
[2017-12-29] MEDS: oxyCODONE/Acetaminophen 10/325 Tablet PO PRN ×4 (02:09→20:05)
[2017-12-29] MEDS: Sod Chloride 0.9% Inj 1,000 ML IV.CONT SCH ×3 (02:10→16:51)
[2017-12-29] MEDS: Heparin - SQ 10,000 UNITS/ML Vial SQ SCH ×2 (05:49→17:38)
[2017-12-29] MEDS: Famotidine 20 MG Tablet PO SCH ×2 (08:08→20:05)
[2017-12-29] MEDS: Senna/Docusate Sodium 8.6/50 MG Tablet PO SCH ×2 (08:09→20:05)
[2017-12-29] MEDS: Folic Acid 1 MG Tablet PO SCH (08:09)
[2017-12-29] MEDS ORDERED: Pharmacy Ordered Lab Info OTHER ONE (09:45)
--- NOTE | 2017-12-29 09:47 | P.PN ---
Physical Exam Vital signs: Vital Signs 12/28/17 11:19 12/28/17 11:30 12/28/17 11:45 Temperature 99.0 F Pulse Rate 110 H 95 H 94 H Respiratory Rate 23 19 19 Blood Pressure 162/83 H 153/92 H 193/74 H Pulse Oximetry 82 L 91 L 92 L 12/28/17 11:50 12/28/17 12:00 12/28/17 12:32 Temperature 99 F Pulse Rate 83 87 Respiratory Rate 19 19 18 Blood Pressure 148/81 H 133/63 Pulse Oximetry 93 L 91 L 12/28/17 16:00 12/28/17 20:00 12/29/17 00:00 Temperature 98.2 F 97.6 F 97.7 F Pulse Rate 75 79 69 Respiratory Rate 19 18 18 Blood Pressure 120/72 119/75 125/66 Pulse Oximetry 96 97 96 12/29/17 04:00 12/29/17 08:00 Temperature 97.9 F 98.2 F Pulse Rate 72 76 Respiratory Rate 18 20 Blood Pressure 138/70 129/71 Pulse Oximetry 95 95 Intake & Output 12/28/17 12/29/17 12/29/17 18:59 06:59 18:59 Intake Total 3176 / 3176 1100 / 1100 305 / 305 Output Total 53 / 53 Balance 3123 / 3123 1100 / 1100 305 / 305 Weight 83.8 kg Intake: IV 3176 / 3176 1100 / 1100 305 / 305 NS Inj 1,000 ML @ 125 mls/hr IV 1626 / 1626 1000 / 1000 .CONT .Q8H [facility] Rx#:[id number] LR 1000 mL Inj 1,000 ML @ 30 700 / 700 5 / 5 mls/hr IV.SIG .Q24H [facility] Rx#: [id number] Zosyn 3.375 GM Premix 50 ML @ 100 / 100 100 / 100 50 / 50 100 mls/hr IV.SIG Q6H [facility] Rx#: [id number] Vancomycin Inj 1,000 MG In NS 750 / 750 250 / 250 Inj 250 ML @ 250 mls/hr IV.SIG Q8H [facility] Rx#:[id number] Output: Urine 3 / 3 Estimated Blood Loss 50 / 50 Other: # Voids 3 2 Narrative: Subjective Pain, at the surgical site. Swelling of right foot improving. No fever or chills. No nvdc. Physical Exam GENERAL: 42 yo F, in pain SKIN: Right foot, dorsalis pedis nonpalpable, gross sensation intact, less tender, with erythema and warmth. No open lesions noted. CARDIOVASCULAR: Regular rate and rhythm without murmurs, gallops, or rubs. RESPIRATORY: Breath sounds equal bilaterally. No accessory muscle use. GASTROINTESTINAL: Abdomen soft, non-tender, nondistended. MUSCULOSKELETAL: No cyanosis, or edema. BACK: Nontender without obvious deformity. No CVA tenderness. NEURO: AAO x3, no cranial nerve deficits, moves all 4 extremities, no focal neurologic deficits Assessment and Plan This is a 42-year-old homeless female with history of alcohol abuse presented to the hospital with right foot cellulitis Right foot cellulitis-continue vancomycin and Zosyn, podiatry consulted, MRI showed cellulitis and abscess (5x1cm). Doppler ultrasound right lower extremity negative for DVT. Leukocytosis better, afebrile for the last 24 hours. Monitor. Weight bearing as tolerated per podiatry. Continue pain control. Discussed with podiatry regarding abscess. S/p I&D on 12/28/17 Continue IV abx Elevate leg while at rest Acute renal failure-baseline creatinine is normal, improving, continue normal saline. AST/ALT elevation-hepatitis panel negative, improving. Comminuted fracture of the second partial phalanx-management per podiatry Hypokalemia-replace Tobacco abuse -recommend cessation continue on NicoDerm patch Alcohol abuse - recommend cessation will continue on multivitamin thiamine and folic acid, CIWA protocol stopped, no signs of withdrawal Homeless, d/c once cleared by Podiatry DVT prophylaxis heparin Discussed with the patient, nurse. Results - Labs CBC & Chem 7: 12/25/17 08:18 12/28/17 07:45 Laboratory Results - last 24 hr 12/28/17 07:45 Sodium 141 Potassium 4.4 Chloride 107 Carbon Dioxide 25.4 Anion Gap 9 BUN 13 Creatinine 1.08 H Estimated GFR 56 L Random Glucose 76 Calcium 8.0 L Total Bilirubin 0.8 AST 41 H ALT 98 H Alkaline Phosphatase 148 H Total Protein 6.6 Albumin 1.7 L Microbiology 12/28/17 10:53 Abscess - Ankle Fungal Smear - Final No fungal elements seen 12/28/17 10:53 Abscess - Ankle Gram Stain - Final 12/23/17 22:25 Blood - Peripheral Aerobic Blood Culture - Preliminary No growth in 4 days 12/23/17 22:25 Blood - Peripheral Anaerobic Blood Culture - Preliminary No growth in 4 days 12/23/17 22:20 Blood - Peripheral Aerobic Blood Culture - Preliminary No growth in 4 days 12/23/17 22:20 Blood - Peripheral Anaerobic Blood Culture - Preliminary No growth in 4 days - Procedures I&D by podiatry of multiple abscesses on 12/28/17
[2017-12-30] MEDS: oxyCODONE/Acetaminophen 10/325 Tablet PO PRN ×4 (01:59→23:37)
[2017-12-30] MEDS: Sod Chloride 0.9% Inj 1,000 ML IV.CONT SCH ×3 (02:01→18:58)
[2017-12-30] MEDS: Heparin - SQ 10,000 UNITS/ML Vial SQ SCH ×2 (05:29→19:20)
[2017-12-30] MEDS: Piperacil/Tazo 3.375 GM Premix 50 ML IV.SIG SCH ×4 (05:29→23:59)
[2017-12-30 07:43] LABS: Vancomycin,Random 16.3 Comment
[2017-12-30] MEDS: Folic Acid 1 MG Tablet PO SCH (08:59)
[2017-12-30] MEDS: Senna/Docusate Sodium 8.6/50 MG Tablet PO SCH ×2 (09:01→21:50)
[2017-12-30] MEDS: Famotidine 20 MG Tablet PO SCH ×2 (09:01→21:50)
--- NOTE | 2017-12-30 09:16 | P.PN ---
Physical Exam Vital signs: Vital Signs 12/29/17 12:00 12/29/17 16:00 12/29/17 20:00 Temperature 97.5 F L 98.3 F 98.4 F Pulse Rate 76 80 81 Respiratory Rate 20 20 18 Blood Pressure 132/65 129/60 133/71 Pulse Oximetry 95 95 95 12/30/17 00:00 12/30/17 04:00 12/30/17 08:00 Temperature 99.0 F 98.3 F 98.2 F Pulse Rate 80 76 78 Respiratory Rate 18 18 20 Blood Pressure 148/74 H 138/77 144/73 H Pulse Oximetry 95 95 94 L Intake & Output 12/29/17 12/30/17 12/30/17 18:59 06:59 18:59 Intake Total 2775 / 2775 1050 / 1050 0 / 0 Output Total 550 / 550 Balance 2225 / 2225 1050 / 1050 0 / 0 Weight 85.6 kg Intake: IV 2055 / 2055 1050 / 1050 0 / 0 NS Inj 1,000 ML @ 125 mls/hr IV 1450 / 1450 1000 / 1000 0 / 0 .CONT .Q8H [facility] Rx#:[id number] LR 1000 mL Inj 1,000 ML @ 30 5 / 5 mls/hr IV.SIG .Q24H [facility] Rx#: [id number] Zosyn 3.375 GM Premix 50 ML @ 150 / 150 50 / 50 100 mls/hr IV.SIG Q6H [facility] Rx#: [id number] Vancomycin Inj 1,000 MG In NS 250 / 250 Inj 250 ML @ 250 mls/hr IV.SIG Q8H [facility] Rx#:[id number] Oral 720 / 720 Output: Urine 550 / 550 Other: # Voids 5 2 # Bowel Movements 2 Narrative: Subjective Pain, at the surgical site improved. Swelling imprpved significantly. She also does exercised in bed. No fever or chills. No nvdc. Physical Exam GENERAL: 42 yo F, in pain SKIN: Right foot, dorsalis pedis nonpalpable, gross sensation intact, less tender, with erythema and warmth. No open lesions noted. CARDIOVASCULAR: Regular rate and rhythm without murmurs, gallops, or rubs. RESPIRATORY: Breath sounds equal bilaterally. No accessory muscle use. GASTROINTESTINAL: Abdomen soft, non-tender, nondistended. MUSCULOSKELETAL: No cyanosis, or edema. BACK: Nontender without obvious deformity. No CVA tenderness. NEURO: AAO x3, no cranial nerve deficits, moves all 4 extremities, no focal neurologic deficits Assessment and Plan This is a 42-year-old homeless female with history of alcohol abuse presented to the hospital with right foot cellulitis Right foot cellulitis-continue vancomycin and Zosyn, podiatry consulted, MRI showed cellulitis and abscess (5x1cm). Doppler ultrasound right lower extremity negative for DVT. Leukocytosis better, afebrile for the last 24 hours. Monitor. Weight bearing as tolerated per podiatry. Continue pain control. Discussed with podiatry regarding abscess. S/p I&D on 12/28/17 Continue IV abx for 2 more days if continue to improved poss DC on PO abx. Needs follow up at wound care. Continue dressings daily per surgeon recommendations Elevate leg while at rest Acute renal failure-baseline creatinine is normal, improving, continue normal saline. AST/ALT elevation-hepatitis panel negative, improving. Comminuted fracture of the second partial phalanx-management per podiatry Hypokalemia-replace Tobacco abuse -recommend cessation continue on NicoDerm patch Alcohol abuse - recommend cessation will continue on multivitamin thiamine and folic acid, CIWA protocol stopped, no signs of withdrawal Homeless, d/c once cleared by Podiatry DVT prophylaxis heparin Discussed with the patient, nurse. Results - Labs CBC & Chem 7: 12/25/17 08:18 12/30/17 06:32 Laboratory Results - last 24 hr 12/29/17 12/30/17 09:40 06:32 Creatinine 1.17 H Estimated GFR 51 L Vancomycin Trough 27.5 H Random Vancomycin 16.3 Microbiology 12/28/17 10:53 Abscess - Ankle Gram Stain - Final 12/28/17 10:53 Abscess - Ankle Wound Culture - Preliminary Streptococcus species 12/23/17 22:25 Blood - Peripheral Aerobic Blood Culture - Final No growth in 5 days 12/23/17 22:25 Blood - Peripheral Anaerobic Blood Culture - Final No growth in 5 days 12/23/17 22:20 Blood - Peripheral Aerobic Blood Culture - Final No growth in 5 days 12/23/17 22:20 Blood - Peripheral Anaerobic Blood Culture - Final No growth in 5 days - Procedures I&D by podiatry of multiple abscesses on 12/28/17
[2017-12-30] MEDS: Vancomycin Inj 1,250 MG in Sodium Chlor 0.9% Inj 250 ML IV.SIG SCH (14:53)
--- NOTE | 2017-12-30 18:36 | P.PNPOD ---
Subjective Interval history: R foot cellulitis, resolving. Patient states swelling/redness significantly reduced. Physical Exam Vital signs: Vital Signs 12/29/17 20:00 12/30/17 00:00 12/30/17 04:00 Temperature 98.4 F 99.0 F 98.3 F Pulse Rate 81 80 76 Respiratory Rate 18 18 18 Blood Pressure 133/71 148/74 H 138/77 Pulse Oximetry 95 95 95 12/30/17 08:00 12/30/17 11:55 12/30/17 12:00 Temperature 98.2 F 98.5 F Pulse Rate 78 72 Respiratory Rate 20 18 18 Blood Pressure 144/73 H 137/99 H Pulse Oximetry 94 L 95 12/30/17 16:00 Temperature 99.1 F Pulse Rate 81 Respiratory Rate 18 Blood Pressure 157/92 H Pulse Oximetry 96 Intake & Output 12/29/17 12/30/17 12/30/17 18:59 06:59 18:59 Intake Total 2775 / 2775 1050 / 1050 50 / 50 Output Total 550 / 550 Balance 2225 / 2225 1050 / 1050 50 / 50 Weight 85.6 kg Intake: IV 2055 / 2055 1050 / 1050 50 / 50 NS Inj 1,000 ML @ 125 mls/hr IV 1450 / 1450 1000 / 1000 0 / 0 .CONT .Q8H [facility] Rx#:[id number] LR 1000 mL Inj 1,000 ML @ 30 5 / 5 mls/hr IV.SIG .Q24H [facility] Rx#: [id number] Zosyn 3.375 GM Premix 50 ML @ 150 / 150 50 / 50 50 / 50 100 mls/hr IV.SIG Q6H [facility] Rx#: [id number] Vancomycin Inj 1,000 MG In NS 250 / 250 Inj 250 ML @ 250 mls/hr IV.SIG Q8H [facility] Rx#:[id number] Oral 720 / 720 Output: Urine 550 / 550 Other: # Voids 5 2 6 # Bowel Movements 2 Narrative: Reduced erythema with minimal drainage to dorsal foot/anterior ankle areas. Painful with dressing change. - Constitutional no acute distress - Neurological Alert and oriented x3 Medications and Allergies Active Medications: Active Medications Acetaminophen (Tylenol) 650 mg PO Q4H PRN PRN Reason: Temp > 100.4 Last Admin: 12/24/17 21:57 Dose: 650 mg Al Hydrox/Mg Hydrox/Simethicone (Mag-Al Plus Susp Liq) 30 ml PO Q6H PRN PRN Reason: DYSPEPSIA Al Hydroxide/Mg Hydroxide (Milk Of Magnesia Liq) 30 ml PO Q12H PRN PRN Reason: Mild Constipation Last Admin: 12/29/17 08:11 Dose: 30 ml Bisacodyl (Dulcolax Supp) 10 mg RECTAL DAILY PRN PRN Reason: SEVERE CONSITIPATION Chlorhexidine Gluconate (Chlorhexidine 2% Cloth) 3 pack [employer] [facility] Stop: 12/31/17 05:29 Docusate Sodium (Colace) 100 mg PO BID PRN PRN Reason: CONSTIPATION Famotidine (Pepcid) 10 mg PO BID [facility] Last Admin: 12/30/17 09:01 Dose: 10 mg Folic Acid (Folic Acid) 1 mg PO DAILY [facility] Last Admin: 12/30/17 08:59 Dose: 1 mg Heparin Sodium (Porcine) (Heparin Inj) 5,000 units SQ Q12H [facility] Last Admin: 12/30/17 05:29 Dose: 5,000 units Pharmacy Profile Note (Vancomycin Consult Pharmacy) 0 mls @ 0 mls/hr OTHER UNSCH [facility] Piperacillin/Tazobactam/Dextrose (Zosyn 3.375 Gm Premix) 50 mls @ 100 mls/hr IV.SIG Q6H [facility] Last Admin: 12/30/17 12:51 Dose: 100 mls/hr Sodium Chloride (Ns Inj) 1,000 mls @ 125 mls/hr IV.CONT .Q8H [facility] Last Admin: 12/30/17 08:59 Dose: 125 mls/hr Lactated Ringer's (Lr 1000 Ml Inj) 1,000 mls @ 30 mls/hr IV.SIG .Q24H [facility] Stop: 12/31/17 05:29 Last Admin: 12/30/17 05:28 Dose: Not Given Sodium Chloride (Ns Inj) 500 mls @ 30 mls/hr IV.SIG .Q10H [facility] Stop: 12/31/17 05:29 Vancomycin HCl 1,250 mg/ (Sodium Chloride) 262.5 mls @ 250 mls/hr IV.SIG Q24H [facility] Last Admin: 12/30/17 14:53 Dose: 250 mls/hr Lactulose (Lactulose Liq) 30 ml PO DAILY PRN PRN Reason: SEVERE CONSITIPATION Metoprolol Tartrate (Lopressor) 25 mg PO [employer] [facility] Stop: 12/31/17 05:29 Miscellaneous (Pill Splitter) 1 each OTHER UNSCH [facility] Miscellaneous Information ([facility] Ordered Lab Info) 0 each OTHER ONCE ONE Stop: 01/02/18 11:46 Morphine Sulfate (Morphine Inj) 2 mg IV.PUSH Q3H PRN PRN Reason: PAIN 3-5; IF UABLE TO TAKE PO Multivitamins (Theragran) 1 tab PO DAILY [facility] Last Admin: 12/30/17 09:01 Dose: 1 tab Naloxone HCl (Narcan Inj) 0.4 mg IV.PUSH UNSCH PRN PRN Reason: SEE LABEL COMMENTS Nicotine (Habitrol 14 Mg Patch.24 Hr) 1 patch T-DERMAL DAILY [facility] Last Admin: 12/30/17 09:00 Dose: Not Given Ondansetron HCl (Zofran Odt) 4 mg PO Q6H PRN PRN Reason: NAUSEA OR VOMITING Last Admin: 12/27/17 18:55 Dose: 4 mg Oxycodone/Acetaminophen (Percocet 10/325 Mg) 1 tab PO Q6H PRN PRN Reason: PAIN SCALE 6 TO 10 Last Admin: 12/30/17 16:32 Dose: 1 tab Oxycodone/Acetaminophen (Percocet 5/325 Mg) 1 tab PO Q6H PRN PRN Reason: PAIN SCALE 3 TO 5 Last Admin: 12/26/17 18:32 Dose: 1 tab Patch Removal (Remove Old Patch) 1 each T-DERMAL DAILY [facility] Last Admin: 12/30/17 09:02 Dose: Not Given Potassium Chloride (Klor-Con 10) 40 meq PO DAILY [facility] Last Admin: 12/30/17 09:01 Dose: 40 meq Povidone Iodine (Betadine 5% Antisepsis Kit) 1 applicatio EACH [employer] [facility] Stop: 12/31/17 05:29 Senna/Docusate Sodium (Stacy-Colace) 1 tab PO BID [facility] Last Admin: 12/30/17 09:01 Dose: 1 tab Sennosides (Senokot) 17.2 mg PO Q12H PRN PRN Reason: Moderate Constipation Temazepam (Restoril) 15 mg PO HS PRN PRN Reason: INSOMNIA Thiamine HCl (Vitamin B1) 100 mg PO DAILY [facility] Last Admin: 12/30/17 09:01 Dose: 100 mg Allergies Allergy/AdvReac Type Severity Reaction Status Date / Time No Known Allergies Allergy Mild n/a Uncoded 12/24/17 05:20 Home Medications Medication Instructions Recorded Confirmed Type No Known Home Medications 12/23/17 12/23/17 History Results - Labs CBC & Chem 7: 12/25/17 08:18 12/30/17 06:32 Laboratory Results - last 24 hr 12/30/17 06:32 Creatinine 1.17 H Estimated GFR 51 L Random Vancomycin 16.3 Microbiology 12/28/17 10:53 Abscess - Ankle Gram Stain - Final 12/28/17 10:53 Abscess - Ankle Wound Culture - Preliminary Streptococcus species - Procedures I&D by podiatry of multiple abscesses on 12/28/17 Assessment and Plan - Assessment (1) Abscess Code(s): L02.91 - Cutaneous abscess, unspecified Status: Acute Plan: Dressing changed today and cellulitis appears to be resolving well. Continue dressing changes as ordered daily. Recommend 2 more days IV antibiotics before considering discharge. Will need follow up arranged at wound care center prior to discharge, as well. No further treatment planned at this time.
[2017-12-31] MEDS ORDERED: Pharmacy Ordered Lab Info OTHER SCH (01:45)
[2017-12-31] MEDS: Sod Chloride 0.9% Inj 1,000 ML IV.CONT SCH ×3 (03:13→18:49)
[2017-12-31] MEDS: oxyCODONE/Acetaminophen 10/325 Tablet PO PRN ×3 (05:29→21:06)
[2017-12-31] MEDS: Piperacil/Tazo 3.375 GM Premix 50 ML IV.SIG SCH ×3 (05:30→18:52)
[2017-12-31] MEDS: Heparin - SQ 10,000 UNITS/ML Vial SQ SCH ×2 (05:32→18:50)
[2017-12-31] MEDS: Senna/Docusate Sodium 8.6/50 MG Tablet PO SCH ×2 (09:56→21:06)
[2017-12-31] MEDS: Famotidine 20 MG Tablet PO SCH ×2 (09:56→21:06)
[2017-12-31] MEDS: Folic Acid 1 MG Tablet PO SCH (09:57)
[2017-12-31] MEDS: Vancomycin Inj 1,250 MG in Sodium Chlor 0.9% Inj 250 ML IV.SIG SCH (12:12)
--- NOTE | 2017-12-31 17:21 | P.PN ---
Physical Exam Vital signs: Vital Signs 12/30/17 18:55 12/30/17 22:45 12/31/17 00:00 Temperature 98.7 F 99.3 F Pulse Rate 80 84 Respiratory Rate 18 18 18 Blood Pressure 130/60 142/66 H Pulse Oximetry 95 94 L 12/31/17 04:00 12/31/17 08:00 12/31/17 12:00 Temperature 98.4 F 97.8 F 98.1 F Pulse Rate 69 65 72 Respiratory Rate 18 21 20 Blood Pressure 155/77 H 162/67 H 142/66 H Pulse Oximetry 93 L 92 L 91 L 12/31/17 13:04 12/31/17 16:00 Temperature 98.2 F Pulse Rate 68 Respiratory Rate 18 21 Blood Pressure 144/65 H Pulse Oximetry 94 L Intake & Output 12/30/17 12/31/17 12/31/17 18:59 06:59 18:59 Intake Total 50 / 50 2892.5 / 2892.5 1000 / 1000 Output Total 300 / 300 Balance 50 / 50 2592.5 / 2592.5 1000 / 1000 Weight 167 kg 81 kg Intake: IV 50 / 50 1412.5 / 1412.5 1000 / 1000 NS Inj 1,000 ML @ 125 mls/hr IV 0 / 0 1000 / 1000 1000 / 1000 .CONT .Q8H [facility] Rx#:[id number] Zosyn 3.375 GM Premix 50 ML @ 50 / 50 150 / 150 100 mls/hr IV.SIG Q6H [facility] Rx#: [id number] Vancomycin Inj 1,250 MG In NS 262.5 / 262.5 Inj 250 ML @ 250 mls/hr IV.SIG Q24H [facility] Rx#:[id number] Oral 1480 / 1480 Output: Urine 300 / 300 Other: # Voids 6 1 Date of Last Bowel Movement 12/29/17 # Bowel Movements 0 Narrative: Subjective Pain and swelling at the surgical site improved significantly. Says she wants to go home soon. No fever or chills. No nvdc. Physical Exam GENERAL: 42 yo F, in pain SKIN: Right foot, dorsalis pedis nonpalpable, gross sensation intact, less tender, with erythema and warmth. No open lesions noted. CARDIOVASCULAR: Regular rate and rhythm without murmurs, gallops, or rubs. RESPIRATORY: Breath sounds equal bilaterally. No accessory muscle use. GASTROINTESTINAL: Abdomen soft, non-tender, nondistended. MUSCULOSKELETAL: No cyanosis, or edema. BACK: Nontender without obvious deformity. No CVA tenderness. NEURO: AAO x3, no cranial nerve deficits, moves all 4 extremities, no focal neurologic deficits Assessment and Plan This is a 42-year-old homeless female with history of alcohol abuse presented to the hospital with right foot cellulitis Right foot cellulitis-continue vancomycin and Zosyn, podiatry consulted, MRI showed cellulitis and abscess (5x1cm). Doppler ultrasound right lower extremity negative for DVT. Leukocytosis better, afebrile for the last 24 hours. Monitor. Weight bearing as tolerated per podiatry. Continue pain control. Discussed with podiatry regarding abscess. S/p I&D on 12/28/17 Continue IV abx for 2 more days if continue to improved poss DC on PO abx. Needs follow up at wound care. Continue dressings daily per surgeon recommendations Elevate leg while at rest Acute renal failure-baseline creatinine is normal, improving, continue normal saline. AST/ALT elevation-hepatitis panel negative, improving. Comminuted fracture of the second partial phalanx-management per podiatry Hypokalemia-replace Tobacco abuse -recommend cessation continue on NicoDerm patch Alcohol abuse - recommend cessation will continue on multivitamin thiamine and folic acid, CIWA protocol stopped, no signs of withdrawal Homeless, d/c once cleared by Podiatry DVT prophylaxis heparin Discussed with the patient, nurse. Discharge plan. Discharge after 1 or 2 days of IV antibiotics. Patient needs dressing changes, also to have antibiotics by mouth at discharge. She is homeless. Case management also following for discharge planning. Results - Labs CBC & Chem 7: 12/25/17 08:18 12/31/17 08:50 Laboratory Results - last 24 hr 12/31/17 08:50 Creatinine 1.10 H Estimated GFR 54 L Microbiology 12/28/17 10:53 Abscess - Ankle Acid Fast Bacilli Smear - Final No acid fast bacilli seen 12/28/17 10:53 Abscess - Ankle Gram Stain - Final 12/28/17 10:53 Abscess - Ankle Wound Culture - Final Group A beta (Strep pyogenes) - Procedures I&D by podiatry of multiple abscesses on 12/28/17
[2018-01-01] MEDS: Piperacil/Tazo 3.375 GM Premix 50 ML IV.SIG SCH ×3 (01:27→12:26)
[2018-01-01] MEDS: Sod Chloride 0.9% Inj 1,000 ML IV.CONT SCH ×2 (01:29→09:42)
[2018-01-01] MEDS: Heparin - SQ 10,000 UNITS/ML Vial SQ SCH (05:21)
[2018-01-01] MEDS: Senna/Docusate Sodium 8.6/50 MG Tablet PO SCH (08:19)
[2018-01-01] MEDS: Famotidine 20 MG Tablet PO SCH (08:19)
[2018-01-01] MEDS: Folic Acid 1 MG Tablet PO SCH (08:20)
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
[2018-01-01 10:48] VITALS: BP 144/76; PULSE 68; TEMP 98; O2SAT 94
[2018-01-01] MEDS: Vancomycin Inj 1,250 MG in Sodium Chlor 0.9% Inj 250 ML IV.SIG SCH (11:20)
[2018-01-01] MEDS: oxyCODONE/Acetaminophen 10/325 Tablet PO PRN (11:21)
[2018-01-01 11:42] VITALS: RESP 16
[2018-01-02] MEDS ORDERED: Pharmacy Ordered Lab Info OTHER ONE (11:45)
== END 2018-01-01 12:54 | disposition home or self-care (01) ==
LOC: NEPC 22:00 → NEDA 12-24 04:28 → H7ONC 12-24 06:04 → N05 12-27 16:57
PROVIDERS: ADMIT Hospitalist; ATTEND Hospitalist